=== PATIENT | female | born 1950 | race Caucasian/White ===

== ENCOUNTER 2017-06-05 08:27 | Inpatient (IN) | payer MEDICARE, BC ==
[2017-06-05] MEDS ORDERED: Ondansetron 4 MG/2 ML SDV IVPUSH ONE (09:49)
[2017-06-05] MEDS ORDERED: Ibuprofen 600 MG Tab PO ONE (09:49)
--- NOTE | 2017-06-05 09:55 | EDM.PDOC ---
ED HPI GENERAL MEDICAL PROBLEM - General Chief Complaint: Fever Stated Complaint: HEADACHE RUNNING TEMPERATURE Time Seen by Provider: 06/05/17 09:48 Source of Information: Reports: Patient History Limitations: Reports: No Limitations - History of Present Illness INITIAL COMMENTS - FREE TEXT/NARRATIVE: 67-year-old female presents to the ED for evaluation of high fever up to 102.3 at her home. She's been ill with fever and chills for the last 3 days. Of note the patient was on a cruise to [place] and became ill on June 01 while she was in [place]. She's had some diarrhea while on the cruise ship She reports a good deal of nasal secretion drainage which was yellowish in color. Subsequently has developed a productive cough but can't get any sputum up the last day or so. Does have a generalized headache. She has anorexia. Denies any dysuria ,urgency or frequency. No skin rashes. She doesn't believe that she came in contact with any ticks or mosquitoes while away. Of note the patient does not take a flu shot. Did express a lot of pain in her left ear and mitzi- face during the flight specially landing i.e. tubal occlusion on the left side. History she has a chronic sinusitis problem. Associated nausea without vomiting. Very little oral food intake in the last 3 days. Associated diaphoresis and rigors 2 days. Onset: Gradual Onset Date: 06/01/17 Duration: Day(s):, Getting Worse Location: Reports: Generalized Quality: Reports: Ache, Pressure (Generalized myalgia. 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 Became sick on the cruise ship.). Denies: Activity, Exercise, Lifting , Sick Contact, Trauma Associated Symptoms: Reports: Chest Pain, Cough, cough w sputum (Active sounding cough.), Diaphoresis ( Occasional yellow sputum), Fever/Chills, Headaches, Loss of Appetite, Malaise, Nausea/Vomiting (Nausea and did vomit once on Sunday, June 03.), Shortness of Breath. 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 Face Pain Score (Numeric/FACES): 7 Lower Back Pain Score (Numeric/FACES): 8 - Related Data Allergies Allergy/AdvReac Type Severity Reaction Status Date / Time codeine AdvReac Headache Verified 06/05/17 14:39 meperidine [From Demerol] AdvReac Nausea and Verified 06/05/17 14:39 Vomiting morphine AdvReac Depression Verified 06/05/17 14:39 IV contrast dye Allergy Rash Uncoded 06/05/17 09:00 P T U Allergy Rash Uncoded 06/05/17 09:00 Past Medical History HEENT History: Reports: Impaired Vision Other HEENT History: wears eyeglasses Cardiovascular History: Reports: Hypertension Gastrointestinal History: Reports: Other (See Below) Other Gastrointestinal History: part of liver removed. PRINCIPAL SECURITY ARCHITECT History: Reports: Endocrine/Metabolic History: Reports: Hypothyroidism Oncologic (Cancer) History: Reports: Liver - Infectious Disease History Infectious Disease History: Reports: Chicken Pox, Measles, Mumps, Shingles - Past Surgical History GI Surgical History: Reports: Cholecystectomy Musculoskeletal Surgical History: Reports: Other (See Below) Other Musculoskeletal Surgeries/Procedures:: TMJ surgery. Social & Family History - Tobacco Use Smoking Status *Q: Never Smoker Second Hand Smoke Exposure: No - Caffeine Use Caffeine Use: Reports: Coffee - Recreational Drug Use Recreational Drug Use: No - Living Situation & Occupation Living situation: Reports: Single Occupation: Retired ED ROS GENERAL - Review of Systems Review Of Systems: See Below Constitutional: Reports: Fever, Chills, Malaise, Weakness, Fatigue, Decreased Appetite HEENT: Reports: Ear Pain (Left side), Glasses, Hearing Loss (On the left side), Rhinitis, Sinus Problem, Vertigo (Does feel off balance. Has to walk with one person assist). Denies: Throat Pain, Throat Swelling Respiratory: Reports: Shortness of Breath, Cough, Sputum. Denies: Wheezing, Pleuritic Chest Pain, Hemoptysis (Occasional yellowish sputum) Cardiovascular: Reports: Dyspnea on Exertion, Lightheadedness. Denies: Chest Pain, Blood Pressure Problem, Claudication, Edema, Orthopnea, Palpitations Endocrine: Reports: Fatigue GI/Abdominal: Reports: Anorexia, Nausea, Vomiting (Vomited once 2 days ago.) Musculoskeletal: Reports: Neck Pain, Back Pain, Other (Generalized myalgia.) Skin: Reports: No Symptoms Neurological: Reports: Dizziness, Headache, Weakness. Denies: Confusion, Paresthesia, Pre-Existing Deficit, Syncope, Tremors, Trouble Speaking, Difficulty Walking Psychiatric: Reports: No Symptoms Hematologic/Lymphatic: Reports: No Symptoms Immunologic: Reports: No Symptoms ED EXAM, GENERAL - Physical Exam Exam: See Below Exam Limited By: No Limitations General Appearance: Alert, WD/WN, Moderate Distress, Other (Patient feels very warm to palpation like 102 or more. She is diaphoretic. O2 sats were only 88% on room air. She is 93% on 2 L.) Eye Exam: Bilateral Eye: Normal Inspection Ears: Other (Left serous otitis media. There is also an area of erythema in the posterior ear canal suggestive of a Q-tip injury.) Nose: Nasal Swelling, Nasal Drainage, Other Throat/Mouth: Normal Inspection, Normal Oropharynx, Other (Tongue is dry and coated.) Head: Atraumatic, Normocephalic Neck: Normal Inspection, Supple, Non-Tender, Full Range of Motion. No: Lymphadenopathy (L), Lymphadenopathy (R) Respiratory/Chest: Lungs Clear (Mild tachypnea.), Respiratory Distress, Other ( Harsh productive sounding cough.). No: Rales, Rhonchi, Wheezing Cardiovascular: Normal Peripheral Pulses, Regular Rate, Rhythm (Tachycardia at rest 10 6/m.), No Edema, No Gallop, No Murmur, No Rub, Tachycardia Peripheral Pulses: 2+: Posterior Tibial (L), Posterior Tibial (R), Dorsalis Pedis (L), Dorsalis Pedis (R) GI/Abdominal: Normal Bowel Sounds, Soft, Non-Tender, No Organomegaly, No Distention Back Exam: No: CVA Tenderness (L), CVA Tenderness (R) Extremities: Normal Inspection, Normal Range of Motion, Non-Tender, No Pedal Edema Neurological: Alert, Oriented, CN II-XII Intact, Normal Cognition, Normal Gait Psychiatric: Normal Affect, Normal Mood Skin Exam: Warm, Dry, Normal Color, No Rash, Diaphoretic EKG INTERPRETATION EKG Date: 06/05/17 Time: 10:15 Rhythm: NSR Rate (Beats/Min): 95 Garrard: Normal P-Wave: Present QRS: Other (Occasional PVCs) ST-T: Depressed (Mild ST segment depression in lead 1 before V5 and perhaps V6. This may represent a repolarization abnormality versus ischemia.) QT: Normal EKG Interpretation Comments: Borderline ECG Course - Vital Signs Last Recorded V/S: Last Vital Signs Temp 38.3 C H 06/05/17 10:25 Pulse 101 H 06/05/17 08:50 Resp 20 06/05/17 08:50 BP 120/74 06/05/17 08:50 Pulse Ox 91 L 06/05/17 08:50 - Orders/Labs/Meds Orders: Active Orders 24 hr Category Date Time Status EKG Documentation Completion [RC] STAT Care 06/05/17 09:50 Active Height and Weight [RC] DAILY Care 06/05/17 14:27 Active Intake and Output [RC] QSHIFT Care 06/05/17 14:27 Active Oxygen Therapy [RC] ASDIRECTED Care 06/05/17 09:51 Active Oxygen Therapy [RC] PRN Care 06/05/17 14:27 Active RT Aerosol Therapy [RC] ASDIRECTED Care 06/05/17 14:29 Active Up With Assistance [RC] ASDIRECTED Care 06/05/17 14:27 Active Up ad Sherrell [RC] ASDIRECTED Care 06/05/17 14:27 Active VTE/DVT Education [RC] PER UNIT ROUTINE Care 06/05/17 14:27 Active Vital Signs [RC] Q4H Care 06/05/17 14:27 Active Consult to Case Management [CONS] Routine Cons 06/05/17 14:31 Active Consult to Seed Specialist [CONS] Routine Cons 06/05/17 14:31 Active Consult to Spiritual Care [CONS] Routine Cons 06/05/17 14:31 Active OT Evaluation and Treatment [CONS] Routine Cons 06/05/17 14:31 Active PT Evaluation and Treatment [CONS] Routine Cons 06/05/17 14:31 Active Respiratory Care Assess and Treatment [CONS] Routine Cons 06/05/17 14:31 Active Nothing per Oral Now Diet [DIET] Diet 06/05/17 Lunch Active C-REACTIVE PROTEIN [CHEM] AM Lab 06/06/17 05:11 Ordered C-REACTIVE PROTEIN [CHEM] AM Lab 06/07/17 05:11 Ordered C-REACTIVE PROTEIN [CHEM] AM Lab 06/08/17 05:11 Ordered CBC WITH AUTO DIFF [HEME] AM Lab 06/06/17 05:11 Ordered CBC WITH AUTO DIFF [HEME] AM Lab 06/07/17 05:11 Ordered CBC WITH AUTO DIFF [HEME] AM Lab 06/08/17 05:11 Ordered CULTURE BLOOD [BC] Stat Lab 06/05/17 10:10 Received CULTURE BLOOD [BC] Stat Lab 06/05/17 10:20 Received MAGNESIUM [CHEM] AM Lab 06/06/17 05:11 Ordered MAGNESIUM [CHEM] AM Lab 06/07/17 05:11 Ordered MAGNESIUM [CHEM] AM Lab 06/08/17 05:11 Ordered NOROVIRUS GROUP 1 & 2 RT-PCR Stat Lab 06/05/17 14:00 Ordered SEDIMENTATION RATE AUTO [HEME] AM Lab 06/06/17 05:11 Ordered SEDIMENTATION RATE AUTO [HEME] AM Lab 06/07/17 05:11 Ordered SEDIMENTATION RATE AUTO [HEME] AM Lab 06/08/17 05:11 Ordered Acetaminophen [Tylenol] Med 06/05/17 14:27 Active 650 mg PO Q4H PRN Albuterol/Ipratropium [DuoNeb 3.0-0.5 MG/3 ML] Med 06/05/17 14:27 Active 3 ml NEB Q4H PRN Amoxicillin/Clavulanate K [Augmentin XR 1000 MG] Med 06/05/17 14:37 Once 1 tab PO ONETIME ONE Amoxicillin/Clavulanate K [Augmentin XR 1000 MG] Med 06/05/17 21:00 Ordered 1 tab PO Q12HR Dextrose 5%-0.9% NaCl [Dextrose 5%-Normal Saline] 1,000 Med 06/05/17 10:00 Active ml IV ASDIRECTED Enoxaparin [Lovenox] Med 06/06/17 09:00 Ordered 30 mg SUBCUT DAILY HYDROmorphone [Dilaudid] Med 06/05/17 14:27 Active 0.25 mg IVPUSH Q2H PRN Ketorolac [Toradol] Med 06/05/17 13:30 Active 30 mg IVPUSH ONETIME LORazepam [Ativan] Med 06/05/17 14:27 Active 0.5 mg IV Q6H PRN LORazepam [Ativan] Med 06/05/17 14:32 Active 2 mg IVPUSH Q4H PRN Magnesium Rep Pharmacy to Dose [Pharmacy to Dose - Med 06/05/17 14:45 Ordered Magnesium Replacement] 1 dose .XX ASDIRECTED Metoprolol Tartrate [Lopressor] Med 06/05/17 14:32 Active 5 mg IVPUSH Q4H PRN Ondansetron [Zofran] Med 06/05/17 14:27 Active 4 mg IV Q6H PRN Potassium Rep Pharmacy to Dose [Pharmacy to Dose - Med 06/05/17 14:45 Ordered Potassium Replacement] 1 dose .XX ASDIRECTED Promethazine [Phenergan] 12.5 mg Med 06/05/17 14:27 Active Sodium Chloride 0.9% [Normal Saline] 50 ml IV Q6H Saccharomyces Boulardii [Florastor] Med 06/05/17 21:00 Active 250 mg PO BID Saccharomyces Boulardii [Florastor] Med 06/06/17 14:38 Once 250 mg PO DAILY ONE Temazepam [Restoril] Med 06/05/17 14:27 Active 15 mg PO BEDTIME PRN hydrALAZINE [Apresoline] Med 06/05/17 14:32 Active 20 mg IVPUSH Q4H PRN oxyCODONE Med 06/05/17 14:27 Active 5 mg PO Q4H PRN Blood Culture x2 Reflex Set [OM.PC] Stat Oth 06/05/17 09:51 Ordered Isolation [COMM] Routine Oth 06/05/17 14:40 Ordered Resuscitation Status Routine Resus Stat 06/05/17 14:27 Ordered Medication Orders Acetaminophen (Tylenol) 650 mg PO Q4H PRN PRN Reason: Pain (Mild 1-3)/fever Albuterol/Ipratropium (Duoneb 3.0-0.5 Mg/3 Ml) 3 ml NEB Q4H PRN PRN Reason: Shortness Of Breath/wheezing Amoxicillin/Clavulanate Potassium (Augmentin Xr 1000 Mg) 1 tab PO Q12HR BOOGIE Amoxicillin/Clavulanate Potassium (Augmentin Xr 1000 Mg) 1 tab PO ONETIME ONE Stop: 06/05/17 14:38 Enoxaparin Sodium (Lovenox) 30 mg SUBCUT DAILY [facility]IE Hydralazine HCl (Apresoline) 20 mg IVPUSH Q4H PRN PRN Reason: Hypertension Hydromorphone HCl (Dilaudid) 0.25 mg IVPUSH Q2H PRN PRN Reason: Pain (severe 7-10) Dextrose/Sodium Chloride (Dextrose 5%-Normal Saline) 1,000 mls @ 500 mls/hr IV ASDIRECTED BOOGIE Last Admin: 06/05/17 10:23 Dose: 500 mls/hr Promethazine HCl 12.5 mg/ (Sodium Chloride) 50.5 mls @ 100 mls/hr IV Q6H PRN PRN Reason: Nausea/Vomiting Ketorolac Tromethamine (Toradol) 30 mg IVPUSH ONETIME [facility] Last Admin: 06/05/17 13:49 Dose: 30 mg Lorazepam (Ativan) 0.5 mg IV Q6H PRN PRN Reason: Anxiety Lorazepam (Ativan) 2 mg IVPUSH Q4H PRN PRN Reason: Seizures Magnesium Sulfate (Pharmacy To Dose - Magnesium Replacement) 1 dose .XX ASDIRECTED [facility] Metoprolol Tartrate (Lopressor) 5 mg IVPUSH Q4H PRN PRN Reason: Tachycardia Ondansetron HCl (Zofran) 4 mg IV Q6H PRN PRN Reason: Nausea/Vomiting Oxycodone HCl (Oxycodone) 5 mg PO Q4H PRN PRN Reason: Pain (moderate 4-6) Potassium Chloride (Pharmacy To Dose - Potassium Replacement) 1 dose .XX ASDIRECTED [facility] Saccharomyces Boulardii (Florastor) 250 mg PO BID [facility] Saccharomyces Boulardii (Florastor) 250 mg PO DAILY ONE Stop: 06/06/17 14:39 Temazepam (Restoril) 15 mg PO BEDTIME PRN PRN Reason: Sleep Labs: Laboratory Tests 06/05/17 06/05/17 06/05/17 Range/Units 10:10 10:10 12:30 WBC 6.20 (3.98-10.04) K/mm3 RBC 4.10 (3.98-5.22) M/mm3 Hgb 13.1 (11.2-15.7) gm/L Hct 39.0 (34.1-44.9) % MCV 95.1 H (79.4-94.8) fl MCH 32.0 (25.6-32.2) pg MCHC 33.6 (32.2-35.5) g/dl RDW Std Deviation 42.1 (36.4-46.3) fL Plt Count 173 L (182-369) K/mm3 MPV 10.2 (9.4-12.3) fl Neutrophils % (Manual) 79 H (40-60) % Band Neutrophils % 9 (0-10) % Lymphocytes % (Manual) 10 L (20-40) % Atypical Lymphs % 0 % Monocytes % (Manual) 2 (2-10) % Eosinophils % (Manual) 0 L (0.7-5.8) % Basophils % (Manual) 0 L (0.1-1.2) Platelet Estimate Adequate RBC Morph Comment Normal ESR (0-20) mm/hr Sodium 134 L (136-145) mEq/L Potassium 3.6 (3.5-5.1) mEq/L Chloride 99 (98-107) mEq/L Carbon Dioxide 26 (21-32) mEq/L Anion Gap 12.6 (5-15) BUN 11 (7-18) mg/dL Creatinine 0.8 (0.55-1.02) mg/dL Est Cr Clr Drug Dosing 54.71 mL/min Estimated GFR (MDRD) > 60 (>60) mL/min BUN/Creatinine Ratio 13.8 L (14-18) Glucose 137 H (80-115) mg/dL Calcium 9.0 (8.5-10.1) mg/dL Total Bilirubin 0.4 (0.2-1.0) mg/dL AST 57 H (15-37) U/L ALT 38 (14-59) U/L Alkaline Phosphatase 125 H (46-116) U/L C-Reactive Protein 6.4 H* (<1.0) mg/dL Total Protein 7.0 (6.4-8.2) g/dl Albumin 3.3 L (3.4-5.0) g/dl Globulin 3.7 gm/dL Albumin/Globulin Ratio 0.9 L (1-2) Urine Color Yellow (Yellow) Urine Appearance Clear (Clear) Urine pH 6.0 (5.0-8.0) Ur Specific [place] 1.020 (1.005-1.030) Urine Protein Trace H (Negative) Urine Glucose (UA) 1+ H (Negative) Urine Ketones 1+ H (Negative) Urine Occult Blood Negative (Negative) Urine Nitrite Negative (Negative) Urine Bilirubin Negative (Negative) Urine Urobilinogen 0.2 (0.2-1.0) Ur Leukocyte Esterase Negative (Negative) Urine RBC 0-5 (0-5) /hpf Urine WBC 0-5 (0-5) /hpf Ur Epithelial Cells 0-5 (0-5) /hpf Urine Bacteria Few (FEW) /hpf Urine Mucus Few (FEW) /hpf 06/05/17 Range/Units 14:49 WBC (3.98-10.04) K/mm3 RBC (3.98-5.22) M/mm3 Hgb (11.2-15.7) gm/L Hct (34.1-44.9) % MCV (79.4-94.8) fl MCH (25.6-32.2) pg MCHC (32.2-35.5) g/dl RDW Std Deviation (36.4-46.3) fL Plt Count (182-369) K/mm3 MPV (9.4-12.3) fl Neutrophils % (Manual) (40-60) % Band Neutrophils % (0-10) % Lymphocytes % (Manual) (20-40) % Atypical Lymphs % % Monocytes % (Manual) (2-10) % Eosinophils % (Manual) (0.7-5.8) % Basophils % (Manual) (0.1-1.2) Platelet Estimate RBC Morph Comment ESR 21 H (0-20) mm/hr Sodium (136-145) mEq/L Potassium (3.5-5.1) mEq/L Chloride (98-107) mEq/L Carbon Dioxide (21-32) mEq/L Anion Gap (5-15) BUN (7-18) mg/dL Creatinine (0.55-1.02) mg/dL Est Cr Clr Drug Dosing mL/min Estimated GFR (MDRD) (>60) mL/min BUN/Creatinine Ratio (14-18) Glucose (80-115) mg/dL Calcium (8.5-10.1) mg/dL Total Bilirubin (0.2-1.0) mg/dL AST (15-37) U/L ALT (14-59) U/L Alkaline Phosphatase (46-116) U/L C-Reactive Protein (<1.0) mg/dL Total Protein (6.4-8.2) g/dl Albumin (3.4-5.0) g/dl Globulin gm/dL Albumin/Globulin Ratio (1-2) Urine Color (Yellow) Urine Appearance (Clear) Urine pH (5.0-8.0) Ur Specific [place] (1.005-1.030) Urine Protein (Negative) Urine Glucose (UA) (Negative) Urine Ketones (Negative) Urine Occult Blood (Negative) Urine Nitrite (Negative) Urine Bilirubin (Negative) Urine Urobilinogen (0.2-1.0) Ur Leukocyte Esterase (Negative) Urine RBC (0-5) /hpf Urine WBC (0-5) /hpf Ur Epithelial Cells (0-5) /hpf Urine Bacteria (FEW) /hpf Urine Mucus (FEW) /hpf Meds: Medications Generic Name Dose Route Start Last Admin Trade Name Freq PRN Reason Stop Dose Admin Acetaminophen 650 mg 06/05/17 14:27 Tylenol PO Q4H PRN Pain (Mild 1-3)/fever Albuterol/Ipratropium 3 ml 06/05/17 14:27 Duoneb 3.0-0.5 Mg/3 Ml NEB Q4H PRN Shortness Of Breath/wheezing Amoxicillin/Clavulanate Potassium 1 tab 06/05/17 21:00 Augmentin Xr 1000 Mg PO Q12HR BOOGIE Amoxicillin/Clavulanate Potassium 1 tab 06/05/17 14:37 Augmentin Xr 1000 Mg PO 06/05/17 14:38 ONETIME ONE Enoxaparin Sodium 30 mg 06/06/17 09:00 Lovenox SUBCUT DAILY BOOGIE Hydralazine HCl 20 mg 06/05/17 14:32 Apresoline IVPUSH Q4H PRN Hypertension Hydromorphone HCl 0.25 mg 06/05/17 14:27 Dilaudid IVPUSH Q2H PRN Pain (severe 7-10) Dextrose/Sodium Chloride 1,000 mls @ 500 mls/hr 06/05/17 10:00 06/05/17 10:23 Dextrose 5%-Normal Saline IV 500 mls/hr ASDIRECTED BOOGIE Administration Promethazine HCl 12.5 mg/ 50.5 mls @ 100 mls/hr 06/05/17 14:27 Sodium Chloride IV Q6H PRN Nausea/Vomiting Ketorolac Tromethamine 30 mg 06/05/17 13:30 06/05/17 13:49 Toradol IVPUSH 30 mg ONETIME BOOGIE Administration Lorazepam 0.5 mg 06/05/17 14:27 Ativan IV Q6H PRN Anxiety Lorazepam 2 mg 06/05/17 14:32 Ativan IVPUSH Q4H PRN Seizures Magnesium Sulfate 1 dose 06/05/17 14:45 Pharmacy To Dose - Magnesium Replacement .XX ASDIRECTED [facility] Metoprolol Tartrate 5 mg 06/05/17 14:32 Lopressor IVPUSH Q4H PRN Tachycardia Ondansetron HCl 4 mg 06/05/17 14:27 Zofran IV Q6H PRN Nausea/Vomiting Oxycodone HCl 5 mg 06/05/17 14:27 Oxycodone PO Q4H PRN Pain (moderate 4-6) Potassium Chloride 1 dose 06/05/17 14:45 Pharmacy To Dose - Potassium Replacement .XX ASDIRECTED [facility] Saccharomyces Boulardii 250 mg 06/05/17 21:00 Florastor PO BID BOOGIE Saccharomyces Boulardii 250 mg 06/06/17 14:38 Florastor PO 06/06/17 14:39 DAILY ONE Temazepam 15 mg 06/05/17 14:27 Restoril PO BEDTIME PRN Sleep Discontinued Medications Generic Name Dose Route Start Last Admin Trade Name Freq PRN Reason Stop Dose Admin Levofloxacin/Dextrose 750 mg/ 150 mls @ 100 mls/hr 06/05/17 10:54 06/05/17 11 :20 Premix IV 06/05/17 12:23 100 mls/hr ONETIME ONE Administration Ibuprofen 600 mg 06/05/17 09:49 06/05/17 10:25 Motrin PO 06/05/17 09:50 600 mg ONETIME ONE Administration Ondansetron HCl 4 mg 06/05/17 09:49 06/05/17 10:25 Zofran IVPUSH 06/05/17 09:50 4 mg ONETIME ONE Administration Oseltamivir Phosphate 75 mg 06/05/17 12:14 06/05/17 13:14 Tamiflu PO 06/05/17 12:15 75 mg ONETIME ONE Administration - Radiology Interpretation Free Text/Narrative:: 67-year-old female attends the ED due to four-day to five-day history of illness with fever chills productive cough, anorexia ,headache. She is hypoxic on room air at 88%. 93% on 2 L. She has had fever and chills and marked anorexia. Suspect underlying pneumonia. Plan IV D5 normal saline at 500 mils per hour. Given Motrin 600 mg by mouth for fever relief. Septic workup to be carried out including including blood cultures 2. I will also order an influenza screen since [place] cruise [place] recently does not take a flu shot. CT of the maxillofacial sinuses to be carried out due to marked evidence of sinusitis. Lactic acid ordered as well. - Re-Assessments/Exams Free Text/Narrative Re-Assessment/Exam: 06/05/17 10:51 two-view chest x-ray is completely normal with no signs of pneumonia. CT of the maxillofacial sinuses reveals pansinusitis particularly involving the ethmoids and sphenoids. Would air cells appear to be normal. No obvious middle ear infection was identified on CT. I will therefore place her on Levaquin 750 mg IV at this time for the sinus infection. It's unlikely that the sinus infection alone as the cause of such a high fever however. Observe pending. 06/05/17 10:55 06/05/17 12:11 white count was 6.20 with a left shift of 79% it fills in 9% band cells. Hemoglobin is 13.1 hematocrit is 39.0 platelets 173,000. Sodium was slightly low at 134 potassium low-normal at 3.6. The remainder the chemistry was normal CRP is elevated at 6.4. Influenza screen came back positive for the HIV virus. I will give her initial dose of Tamiflu orally in the ED although she has been ill for greater [place] 48 hours and it's up in the air as to whether she will get much benefit from the antiviral medication. She will require admission to the hospital mostly because of her hypoxia. She also has pansinusitis contributing to her current illness. Will speak to hospitalist in this regard. 06/05/17 12:50 Departure - Departure Time of Disposition: 15:59 Disposition: Home, Self-Care 01 Condition: Fair Clinical Impression: Influenza A, Recurrent pansinusitis, Hypoxia, Influenza - Discharge Information - My Orders Last 24 Hours: My Active Orders 06/05/17 09:50 EKG Documentation Completion [RC] STAT 06/05/17 09:51 Oxygen Therapy [RC] ASDIRECTED Blood Culture x2 Reflex Set [OM.PC] Stat 06/05/17 10:00 Dextrose 5%-0.9% NaCl [Dextrose 5%-Normal Saline] 1,000 ml IV ASDIRECTED 06/05/17 10:10 CULTURE BLOOD [BC] Stat 06/05/17 10:20 CULTURE BLOOD [BC] Stat 06/05/17 13:30 Ketorolac [Toradol] 30 mg IVPUSH ONETIME - Assessment/Plan Last 24 Hours: My Active Orders 06/05/17 09:50 EKG Documentation Completion [RC] STAT 06/05/17 09:51 Oxygen Therapy [RC] ASDIRECTED Blood Culture x2 Reflex Set [OM.PC] Stat 06/05/17 10:00 Dextrose 5%-0.9% NaCl [Dextrose 5%-Normal Saline] 1,000 ml IV ASDIRECTED 06/05/17 10:10 CULTURE BLOOD [BC] Stat 06/05/17 10:20 CULTURE BLOOD [BC] Stat 06/05/17 13:30 Ketorolac [Toradol] 30 mg IVPUSH ONETIME
[2017-06-05] MEDS ORDERED: Dextrose 5%-0.9% NaCl 1,000 ML IV SCH (10:00)
--- NOTE | 2017-06-05 10:49 | CT ---
CT paranasal sinuses Technique: Multiple axial sections through the paranasal sinuses were obtained. Comparison: Previous CT study of the sinuses dated 12/06/16. Findings: Air-fluid levels are noted within both maxillary sinuses. Mild mucosal thickening is seen within both maxillary sinuses. Fairly severe mucosal thickening is seen within the ethmoid sinuses. Minimal mucosal thickening within the sphenoid sinuses is noted. Air-fluid levels are seen within the frontal sinuses. No acute bony abnormality is appreciated. Impression: 1. Air-fluid levels within both maxillary and frontal sinuses. Air-fluid levels are seen within the maxillary sinuses on prior CT exam. Current findings most likely due to recurrent acute sinusitis. 2. Fairly severe mucosal thickening is noted within the ethmoid sinuses. Diagnostic code #3
[2017-06-05] MEDS ORDERED: Levofloxacin/Dextrose 5%-Water 750 MG in Premix Bag 1 BAG IV ONE (10:54)
[2017-06-05] MEDS ORDERED: Oseltamivir 75 MG Cap PO ONE (12:14)
--- NOTE | 2017-06-05 12:30 | CR ---
Chest: Two views of the chest were obtained. Comparison: Previous chest x-ray of 09/04/12. Heart size and mediastinum are normal. Lungs are clear. Bony structures are within normal limits for the patient's age. Impression: 1. Nothing acute is appreciated on two-view chest x-ray. Diagnostic code #1
[2017-06-05] MEDS ORDERED: Ketorolac 30 MG/ML SDV IVPUSH SCH (13:30)
--- NOTE | 2017-06-05 14:00 | PCM.HP ---
H&P History of Present Illness - General Date of Service: 06/05/17 Admit Problem/Dx: Acute Viral Illness and Acute Bacterial Rhinosinusitis Source of Information: Patient, Provider, RN Notes Reviewed, Significant Other History Limitations: Reports: No Limitations - History of Present Illness Initial Comments - Free Text/Narative: This is a 67-year-old white female with past medical history of impaired vision , hypertension, hypothyroidism, history of liver cancer status post resection, who presents to the emergency department with complains of fever with chills that has been going on for the past 3 days. She reports a subjective fever as high as 102.3 at home. Her chief complaints are associated with facial tenderness with nasal drainage that is yellowish in color, left ear pain, productive cough with sputum, generalized aches and pains, headache, nausea, watery diarrhea and anorexia. She denies any skin rash, or joint pain. Patient has taken a cruise to [place] but got sick on June 01 while she was in [place]. Patient has had seafood, plenty of seafood but denies drinking or eating local foods. She denies any seafood intolerance or allergies in the past. Her initial workup in emergency department shows a CBC remarkable of platelet of 173. Her chemistry is remarkable for sodium of 134, glucose of 137, AST of 57 , alkaline phosphatase of 125, CRP of 6.4, and albumin of 3.3. Her UA is negative for UTI. CT scan maxillofacial sinuses without contrast report reads air fluid levels within both maxillary and frontal sinuses. Current findings most likely due to recurrent acute sinusitis. Fairly severe mucosal thickening is noted within the ethmoid sinuses. Chest x-ray report reads nothing acute is appreciated. Patient is being admitted for acute viral illness and acute on chronic bacterial rhinosinusitis. She is full code. Face Pain Score (Numeric/FACES): 7 Lower Back Pain Score (Numeric/FACES): 8 - Related Data Allergies/Adverse Reactions: Allergies Allergy/AdvReac Type Severity Reaction Status Date / Time codeine AdvReac Headache Verified 06/05/17 14:39 meperidine [From Demerol] AdvReac Nausea and Verified 06/05/17 14:39 Vomiting morphine AdvReac Depression Verified 06/05/17 14:39 IV contrast dye Allergy Rash Uncoded 06/05/17 09:00 P T U Allergy Rash Uncoded 06/05/17 09:00 Past Medical History HEENT History: Reports: Impaired Vision Other HEENT History: wears eyeglasses Cardiovascular History: Reports: Hypertension Gastrointestinal History: Reports: Other (See Below) Other Gastrointestinal History: part of liver removed. 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 Social & Family History - Tobacco Use Smoking Status *Q: Never Smoker Second Hand Smoke Exposure: No - Caffeine Use Caffeine Use: Reports: Coffee - Recreational Drug Use Recreational Drug Use: No - Living Situation & Occupation Living situation: Reports: Single Occupation: Retired H&P Review of Systems - Review of Systems: Review Of Systems: See Below General: Reports: Fever, Chills, Malaise, Weakness, Fatigue, Decreased Appetite HEENT: Reports: Ear Pain, Rhinitis, Sinus Congestion, Vertigo Pulmonary: Reports: Shortness of Breath Cardiovascular: Reports: Dyspnea on Exertion, Lightheadedness. Denies: Chest Pain Gastrointestinal: Reports: Anorexia, Diarrhea, Nausea, Vomiting. Denies: Abdominal Pain Musculoskeletal: Reports: Neck Pain, Back Pain, Muscle Pain Skin: Denies: Cyanosis, Jaundice, Pruritis, Rash, Erythema, Lesions Psychiatric: Denies: Confusion, Depression, Anxiety, Hallucinations, Suicidal Ideation, Homicidal Ideation Neurological: Reports: Dizziness, Headache, Weakness. Denies: Difficulty Walking, Gait Disturbance Hematologic/Lymphatic: Reports: No Symptoms Immunologic: Reports: No Symptoms Exam - Exam Exam: See Below - Vital Signs Vital Signs: Last Vital Signs Temp 38.3 C H 06/05/17 10:25 Pulse 101 H 06/05/17 08:50 Resp 20 06/05/17 08:50 BP 120/74 06/05/17 08:50 Pulse Ox 91 L 06/05/17 08:50 Weight: 78.018 kg - Exam General: Alert, Oriented, Cooperative, Mild Distress HEENT: Conjunctiva Clear, EACs Clear, EOMI, Hearing Intact, Normal Nasal Septum , Posterior Pharynx Clear, Pupils Equal, Pupils Reactive, Rhinitis, Other ( Tender sinuses on palpation). No: Mucosa Moist & [place], Nares Patent Neck: Supple, Trachea Midline, +2 Carotid Pulse wo Bruit, Full Range of Motion. No: JVD Lungs: Clear to Auscultation, Normal Respiratory Effort Cardiovascular: Regular Rhythm, Tachycardia GI/Abdominal Exam: Normal Bowel Sounds, Soft, Non-Tender, No Organomegaly, No Distention, No Abnormal Bruit, No Mass (Female) Exam: Deferred Rectal (Female) Exam: Deferred Back Exam: Normal Inspection, Decreased Range of Motion Extremities: Normal Inspection, Normal Range of Motion, Non-Tender, No Pedal Edema, Normal Capillary Refill Peripheral Pulses: 2+: Posterior Tibial (L), Posterior Tibial (R), Dorsalis Pedis (L), Dorsalis Pedis (R) Skin: Warm, Dry, Intact Neuro Extensive - Mental Status: Oriented x3, Normal Cognition, Memory Intact Neuro Extensive - Motor, Sensory, Reflexes: CN II-XII Intact, Normal Gait Psychiatric: Alert, Normal Affect - Patient Data Lab Results Last 24 hrs: Laboratory Results - last 24 hr 06/05/17 06/05/17 06/05/17 Range/Units 10:10 10:10 12:30 WBC 6.20 (3.98-10.04) K/mm3 RBC 4.10 (3.98-5.22) M/mm3 Hgb 13.1 (11.2-15.7) gm/L Hct 39.0 (34.1-44.9) % MCV 95.1 H (79.4-94.8) fl MCH 32.0 (25.6-32.2) pg MCHC 33.6 (32.2-35.5) g/dl RDW Std Deviation 42.1 (36.4-46.3) fL Plt Count 173 L (182-369) K/mm3 MPV 10.2 (9.4-12.3) fl Neutrophils % (Manual) 79 H (40-60) % Band Neutrophils % 9 (0-10) % Lymphocytes % (Manual) 10 L (20-40) % Atypical Lymphs % 0 % Monocytes % (Manual) 2 (2-10) % Eosinophils % (Manual) 0 L (0.7-5.8) % Basophils % (Manual) 0 L (0.1-1.2) Platelet Estimate Adequate RBC Morph Comment Normal Sodium 134 L (136-145) mEq/L Potassium 3.6 (3.5-5.1) mEq/L Chloride 99 (98-107) mEq/L Carbon Dioxide 26 (21-32) mEq/L Anion Gap 12.6 (5-15) BUN 11 (7-18) mg/dL Creatinine 0.8 (0.55-1.02) mg/dL Est Cr Clr Drug Dosing 54.71 mL/min Estimated GFR (MDRD) > 60 (>60) mL/min BUN/Creatinine Ratio 13.8 L (14-18) Glucose 137 H (80-115) mg/dL Calcium 9.0 (8.5-10.1) mg/dL Total Bilirubin 0.4 (0.2-1.0) mg/dL AST 57 H (15-37) U/L ALT 38 (14-59) U/L Alkaline Phosphatase 125 H (46-116) U/L C-Reactive Protein 6.4 H* (<1.0) mg/dL Total Protein 7.0 (6.4-8.2) g/dl Albumin 3.3 L (3.4-5.0) g/dl Globulin 3.7 gm/dL Albumin/Globulin Ratio 0.9 L (1-2) Urine Color Yellow (Yellow) Urine Appearance Clear (Clear) Urine pH 6.0 (5.0-8.0) Ur Specific [place] 1.020 (1.005-1.030) Urine Protein Trace H (Negative) Urine Glucose (UA) 1+ H (Negative) Urine Ketones 1+ H (Negative) Urine Occult Blood Negative (Negative) Urine Nitrite Negative (Negative) Urine Bilirubin Negative (Negative) Urine Urobilinogen 0.2 (0.2-1.0) Ur Leukocyte Esterase Negative (Negative) Urine RBC 0-5 (0-5) /hpf Urine WBC 0-5 (0-5) /hpf Ur Epithelial Cells 0-5 (0-5) /hpf Urine Bacteria Few (FEW) /hpf Urine Mucus Few (FEW) /hpf Result Diagrams: 06/05/17 10:10 06/05/17 10:10 Paulo Results Last 24 hrs: Microbiology 06/05/17 11:05 Influenza Type A Antigen Screen - Final Nasal, Right Positive Influenza A Ag Influenza Type B Antigen Screen - Final NEGATIVE INFLUENZA B VIRUS AG EKG INTERPRETATION EKG Date: 06/05/17 Time: 10:15 Rhythm: NSR Rate (Beats/Min): 95 [place]: Normal P-Wave: Present EKG Interpretation Comments: PVCS *Q Meaningful Use (ADM) - VTE *Q VTE Criteria *Q: - Stroke *Q Stroke Criteria *Q: - AMI *Q AMI Criteria *Q: Problem List Initiated/Reviewed/Updated: Yes Orders Last 24hrs: Active Orders 24 hr Category Date Time Status EKG Documentation Completion [RC] STAT Care 06/05/17 09:50 Active Oxygen Therapy [RC] ASDIRECTED Care 06/05/17 09:51 Active CULTURE BLOOD [BC] Stat Lab 06/05/17 10:10 Received CULTURE BLOOD [BC] Stat Lab 06/05/17 10:20 Received Dextrose 5%-0.9% NaCl [Dextrose 5%-Normal Saline] 1,000 Med 06/05/17 10:00 Active ml IV ASDIRECTED Ketorolac [Toradol] Med 06/05/17 13:30 Active 30 mg IVPUSH ONETIME Blood Culture x2 Reflex Set [OM.PC] Stat Oth 06/05/17 09:51 Ordered Medication Orders Dextrose/Sodium Chloride (Dextrose 5%-Normal Saline) 1,000 mls @ 500 mls/hr IV ASDIRECTED [facility]OO[facility]IE Last Admin: 06/05/17 10:23 Dose: 500 mls/hr Ketorolac Tromethamine (Toradol) 30 mg IVPUSH ONETIME [facility] Last Admin: 06/05/17 13:49 Dose: 30 mg Assessment/Plan Comment:: Assessment/Plan: Acute: Acute Bacterial Rhinosinusitis - Carries hx/o chronci sinusitis - Has has issues with her nasal septum in the past - Sinus tenderness on palpation - Discolored nasal drainage-yellowish - Received IV Levaquin in ED - Nasal Decongestant - Will start Augmentin po BID Viral Illness - Pos Influenza A + - She is now outside the window for treatment - Supportive care Watery Diarrhea - Recent [place] Cruise Trip - R/o Noro Virus - Had no issues with seafood in the past - Did not eat any local food - Supportive Care and Monitor e-lytes Generalized Body Aches/Myalgia - 2/2 Above - Supportive care Chronic: Impaired Vision HTN Hypothyroidism Hx/o Liver CA S/p Partial Resection Plan: Admit to Med-Surg Isolation Protocol Routine AM Labs NPO for now IV Fluids Resume Home Meds PT/OT consult SW/CM for d/c planning Code status: 1
[2017-06-05] MEDS ORDERED: Albuterol/Ipratropium 3.0-0.5 MG/3 ML Neb Soln NEB PRN (14:27)
[2017-06-05] MEDS ORDERED: Promethazine 12.5 MG in Sodium Chloride 0.9% 50 ML IV PRN (14:27)
[2017-06-05] MEDS ORDERED: LORazepam 2 MG/ML MDV IV PRN (14:27)
[2017-06-05] MEDS ORDERED: Acetaminophen 325 MG Tab PO PRN (14:27)
[2017-06-05] MEDS ORDERED: oxyCODONE 5 MG Tab PO PRN (14:27)
[2017-06-05] MEDS ORDERED: HYDROmorphone 1 MG/ML Syringe IVPUSH PRN (14:27)
[2017-06-05] MEDS ORDERED: Ondansetron 4 MG/2 ML SDV IV PRN (14:27)
[2017-06-05] MEDS ORDERED: hydrALAZINE 20 MG/ML SDV IVPUSH PRN (14:32)
[2017-06-05] MEDS ORDERED: LORazepam 2 MG/ML MDV IVPUSH PRN (14:32)
[2017-06-05] MEDS ORDERED: Metoprolol Tartrate 5 MG/5 ML SDV IVPUSH PRN (14:32)
[2017-06-05] MEDS ORDERED: AMOXICILLIN PO ONE (14:37)
[2017-06-05] MEDS ORDERED: CLAVULANATE K PO ONE (14:37)
[2017-06-05] MEDS ORDERED: AMOXICILLIN PO SCH (21:00)
[2017-06-05] MEDS ORDERED: CLAVULANATE K PO SCH (21:00)
[2017-06-05] MEDS: Amoxicillin/Clavulanate K 875-125 MG Tab PO SCH (21:40)
[2017-06-05] MEDS: Dextrose 5%-0.9% NaCl 1,000 ML IV SCH (21:40)
[2017-06-05] MEDS: Temazepam 15 MG Cap PO PRN (21:41)
[2017-06-05] MEDS: Saccharomyces Boulardii (Probiotic) 250 MG Cap PO SCH (21:41)
[2017-06-06] MEDS: Ibuprofen 600 MG Tab PO PRN ×2 (05:51→14:24)
[2017-06-06] MEDS ORDERED: Albuterol 6.7 GM Inhaler INH PRN (06:37)
[2017-06-06] MEDS ORDERED: guaiFENesin 600 MG Tab.ER PO PRN (06:37)
--- NOTE | 2017-06-06 06:37 | PCM.PN ---
- General Info Date of Service: 06/06/17 Admission Dx/Problem (Free Text): Acute Viral Illness and Acute Bacterial Rhinosinusitis Subjective Update: Follow Up Functional Status: Reports: Pain Controlled, Tolerating Diet, Urinating, New Symptoms - Review of Systems General: Reports: Fatigue, Malaise. Denies: Fever, Weakness, Chills HEENT: Reports: No Symptoms, Ear Pain, Sinus Congestion, Rhinitis Pulmonary: Denies: Shortness of Breath Cardiovascular: Denies: Chest Pain Gastrointestinal: Denies: Abdominal Pain, Decreased Appetite, Diarrhea, Nausea, Vomiting Genitourinary: Reports: No Symptoms Musculoskeletal: Reports: No Symptoms Skin: Denies: Cyanosis, Jaundice, Mottled, Pallor, Diaphoresis, Bruising, Pruritis, Rash Neurological: Denies: Confusion, Headache, Difficulty Walking, Weakness, Gait Disturbance Psychiatric: Denies: Depression, Anxiety, Agitation, Hallucinations Systems Review Comment:: No significant overnight or acute issues. She states "I feel much better". She had a shower and has just completed her PT session. She has no new complaints. - Patient Data Vitals - Most Recent: Last Vital Signs Temp 37.1 C 06/06/17 05:00 Pulse 91 06/06/17 05:00 Resp 16 06/06/17 05:00 BP 119/59 L 06/06/17 05:00 Pulse Ox 95 06/06/17 05:00 Weight - Most Recent: 77.836 kg I&O - Last 24 Hours: Intake & Output 06/05/17 06/05/17 06/06/17 14:59 22:59 06:59 Intake Total 1200 Output Total 500 Balance 700 Lab Results Last 24 Hours: Laboratory Results - last 24 hr 06/06/17 Range/Units 05:39 WBC 4.20 (3.98-10.04) K/mm3 RBC 3.77 L (3.98-5.22) M/mm3 Hgb 12.0 (11.2-15.7) gm/L Hct 36.0 (34.1-44.9) % MCV 95.5 H (79.4-94.8) fl MCH 31.8 (25.6-32.2) pg MCHC 33.3 (32.2-35.5) g/dl RDW Std Deviation 42.2 (36.4-46.3) fL Plt Count 146 L (182-369) K/mm3 MPV 9.7 (9.4-12.3) fl Neut % (Auto) 58.9 (34.0-71.1) % Lymph % (Auto) 32.4 (19.3-51.7) % [place] % (Auto) 8.3 (4.7-12.5) % Eos % (Auto) 0.2 L (0.7-5.8) Baso % (Auto) 0.2 (0.1-1.2) % Neut # (Auto) 2.47 (1.56-6.13) K/mm3 Lymph # (Auto) 1.36 (1.18-3.74) K/mm3 [place] # (Auto) 0.35 (0.24-0.36) K/mm3 Eos # (Auto) 0.01 L (0.04-0.36) K/mm3 Baso # (Auto) 0.01 (0.01-0.08) K/mm3 Med Orders - Current: Current Medications Albuterol/Ipratropium (Duoneb 3.0-0.5 Mg/3 Ml) 3 ml NEB Q4H PRN PRN Reason: Shortness Of Breath/wheezing Amoxicillin/Clavulanate Potassium (Augmentin 875 Mg/125 Mg) 1 tab PO BID [facility] Last Admin: 06/05/17 21:40 Dose: 1 tab Enoxaparin Sodium (Lovenox) 40 mg SUBCUT DAILY [facility] Hydralazine HCl (Apresoline) 20 mg IVPUSH Q4H PRN PRN Reason: Hypertension Hydromorphone HCl (Dilaudid) 0.25 mg IVPUSH Q2H PRN PRN Reason: Pain (severe 7-10) Promethazine HCl 12.5 mg/ (Sodium Chloride) 50.5 mls @ 100 mls/hr IV Q6H PRN PRN Reason: Nausea/Vomiting Dextrose/Sodium Chloride (Dextrose 5%-Normal Saline) 1,000 mls @ 100 mls/hr IV ASDIRECTED [facility] Last Admin: 06/05/17 21:40 Dose: 100 mls/hr Ibuprofen (Motrin) 600 mg PO Q6H PRN PRN Reason: Pain (moderate 4-6) Last Admin: 06/06/17 05:51 Dose: 600 mg Lorazepam (Ativan) 0.5 mg IV Q6H PRN PRN Reason: Anxiety Lorazepam (Ativan) 2 mg IVPUSH Q4H PRN PRN Reason: Seizures Magnesium Sulfate (Pharmacy To Dose - Magnesium Replacement) 1 dose .XX ASDIRECTED [facility] Metoprolol Tartrate (Lopressor) 5 mg IVPUSH Q4H PRN PRN Reason: Tachycardia Ondansetron HCl (Zofran) 4 mg IV Q6H PRN PRN Reason: Nausea/Vomiting Oxycodone HCl (Oxycodone) 5 mg PO Q4H PRN PRN Reason: Pain (moderate 4-6) Oxymetazoline HCl (Afrin Original 0.05% Nasal [place]) 15 ml DAMIAN DAILY [facility] Potassium Chloride (Pharmacy To Dose - Potassium Replacement) 1 dose .XX ASDIRECTED [facility] Saccharomyces Boulardii (Florastor) 250 mg PO BID [facility] Last Admin: 06/05/17 21:41 Dose: 250 mg Temazepam (Restoril) 15 mg PO BEDTIME PRN PRN Reason: Sleep Last Admin: 06/05/17 21:41 Dose: 15 mg Discontinued Medications Acetaminophen (Tylenol) 650 mg PO Q4H PRN PRN Reason: Pain (Mild 1-3)/fever Amoxicillin/Clavulanate Potassium (Augmentin Xr 1000 Mg) 1 tab PO Q12HR [facility] Amoxicillin/Clavulanate Potassium (Augmentin Xr 1000 Mg) 1 tab PO ONETIME ONE Stop: 06/05/17 14:38 Last Admin: 06/05/17 20:47 Dose: Not Given Dextrose/Sodium Chloride (Dextrose 5%-Normal Saline) 1,000 mls @ 500 mls/hr IV ASDIRECTED [facility] Last Admin: 06/05/17 10:23 Dose: 500 mls/hr Levofloxacin/Dextrose 750 mg/ (Premix) 150 mls @ 100 mls/hr IV ONETIME ONE Stop: 06/05/17 12:23 Last Admin: 06/05/17 11:20 Dose: 100 mls/hr Ibuprofen (Motrin) 600 mg PO ONETIME ONE Stop: 06/05/17 09:50 Last Admin: 06/05/17 10:25 Dose: 600 mg Ketorolac Tromethamine (Toradol) 30 mg IVPUSH ONETIME [facility] Last Admin: 06/05/17 13:49 Dose: 30 mg Ondansetron HCl (Zofran) 4 mg IVPUSH ONETIME ONE Stop: 06/05/17 09:50 Last Admin: 06/05/17 10:25 Dose: 4 mg Oseltamivir Phosphate (Tamiflu) 75 mg PO ONETIME ONE Stop: 06/05/17 12:15 Last Admin: 06/05/17 13:14 Dose: 75 mg Saccharomyces Boulardii (Florastor) 250 mg PO DAILY ONE Stop: 06/06/17 14:39 - Exam General: Alert, Oriented, Cooperative, No Acute Distress HEENT: Pupils Equal, Pupils Reactive, EOMI, Mucous Membr. Moist/[place] Neck: Supple, Trachea Midline, No JVD, No Thyromegaly Lungs: Clear to Auscultation, Normal Respiratory Effort Cardiovascular: Regular Rate, Regular Rhythm GI/Abdominal Exam: Normal Bowel Sounds, Soft, Non-Tender, No Organomegaly, No Distention, No Abnormal Bruit, No Mass (Female) Exam: Deferred Back Exam: Normal Inspection, Decreased Range of Motion Extremities: Normal Inspection, Normal Range of Motion, Non-Tender, No Pedal Edema, Normal Capillary Refill Peripheral Pulses: 2+: Dorsalis Pedis (L), Dorsalis Pedis (R) Skin: Warm, Dry, Intact Neurological: No New Focal Deficit Psy/Mental Status: Alert, Normal Affect, Normal Mood - Problem List Review Problem List Initiated/Reviewed/Updated: Yes - My Orders Last 24 Hours: My Active Orders 06/05/17 21:00 Amoxicillin/Clavulanate K [Augmentin 875 MG/125 MG] 1 tab PO BID 06/05/17 21:15 Dextrose 5%-0.9% NaCl [Dextrose 5%-Normal Saline] 1,000 ml IV ASDIRECTED 06/06/17 05:24 Ibuprofen [Motrin] 600 mg PO Q6H PRN 06/06/17 09:00 Enoxaparin [Lovenox] 40 mg SUBCUT DAILY Oxymetazoline [Afrin Original 0.05% Nasal [place]] 15 ml DAMIAN DAILY - Plan Plan:: Assessment/Plan: Acute: Acute Bacterial Rhinosinusitis, Improved - Carries hx/o chronci sinusitis - Has has issues with her nasal septum in the past - Sinus tenderness on palpation - Discolored nasal drainage-yellowish - Received IV Levaquin in ED - Nasal Decongestant - Continue Augmentin po BID - She breaths better Viral Illness - Pos Influenza A + - CRP is 10.2 (6.4) - She is now outside the window for treatment - Supportive care Generalized Body Aches/Myalgia - 2/2 Above - Supportive care Hypomagnesemia - Mg is 1.6 - 2/2 inadequate intake - Pharmacy to replete and monitor Resolved: S/p Watery Diarrhea - Recent [place] Cruise Trip - R/o [place] Virus - Had no issues with seafood in the past - Did not eat any local food - Supportive Care and Monitor e-lytes Chronic: Impaired Vision HTN Hypothyroidism Hx/o Liver CA S/p Partial Resection Plan: She looks much better clinically Continue Isolation Protocol Routine AM Labs Start clear liquid diet Complete remaining IV Fluids then d/c Continue PT/OT SW/CM for d/c planning Code status: 1 Possible d/c in AM
[2017-06-06] MEDS ORDERED: HYDROmorphone 0.5 MG/0.5 ML Syringe IVPUSH PRN (07:17)
[2017-06-06] MEDS ORDERED: Loratadine 10 MG Tab PO PRN (07:30)
[2017-06-06] MEDS: Dextrose 5%-0.9% NaCl 1,000 ML IV SCH ×2 (08:17→17:59)
[2017-06-06] MEDS: Saccharomyces Boulardii (Probiotic) 250 MG Cap PO SCH ×2 (08:20→22:07)
[2017-06-06] MEDS: Enoxaparin 40 MG/0.4 ML Syringe SUBCUT SCH (08:20)
[2017-06-06] MEDS: Hydrochlorothiazide 12.5 MG Cap PO SCH (08:21)
[2017-06-06] MEDS: Ascorbic Acid 500 MG Tab PO SCH ×2 (08:21→22:07)
[2017-06-06] MEDS: Cholecalciferol (Vitamin D3) 1,000 Unit Tab PO SCH (08:21)
[2017-06-06] MEDS: Calcium Carbonate 600 MG Tab PO SCH ×3 (08:22→16:19)
[2017-06-06] MEDS: Amoxicillin/Clavulanate K 875-125 MG Tab PO SCH ×2 (08:22→22:08)
[2017-06-06] MEDS: Ibuprofen 600 MG Tab PO SCH ×2 (08:24→22:07)
[2017-06-06] MEDS: Fish Oil/Omega-3 Fatty Acids 1 Gm Cap PO SCH ×3 (08:47→22:07)
[2017-06-06] MEDS ORDERED: Enoxaparin 30 MG/0.3 ML Syringe SUBCUT SCH (09:00)
[2017-06-06] MEDS ORDERED: Oxymetazoline 0.05% Nasal Spray 15 ML Bottle NAS SCH (09:00)
[2017-06-06] MEDS ORDERED: Magnesium Oxide 400 MG Tab PO ONE (09:00)
[2017-06-06] MEDS ORDERED: Saccharomyces Boulardii (Probiotic) 250 MG Cap PO ONE (14:38)
[2017-06-06] MEDS ORDERED: IBUPROFEN PO SCH (21:00)
[2017-06-06] MEDS ORDERED: DIPHENHYDRAMINE CIT PO SCH (21:00)
[2017-06-06] MEDS ORDERED: [UNRECOGNIZED DRUG - OTHER] PO SCH (21:00)
[2017-06-06] MEDS: Temazepam 15 MG Cap PO PRN (22:07)
[2017-06-06] MEDS: Levothyroxine 100 MCG Tab PO SCH (22:07)
[2017-06-06] MEDS: TERIPARATIDE 20 MCG SQ SCH (22:11)
[2017-06-07] MEDS: Dextrose 5%-0.9% NaCl 1,000 ML IV SCH (05:47)
[2017-06-07] MEDS: Calcium Carbonate 600 MG Tab PO SCH ×3 (05:48→16:24)
[2017-06-07] MEDS: Cholecalciferol (Vitamin D3) 1,000 Unit Tab PO SCH (09:43)
[2017-06-07] MEDS: Hydrochlorothiazide 12.5 MG Cap PO SCH (09:44)
[2017-06-07] MEDS: Saccharomyces Boulardii (Probiotic) 250 MG Cap PO SCH ×2 (09:45→22:37)
[2017-06-07] MEDS: Ascorbic Acid 500 MG Tab PO SCH ×2 (09:45→22:35)
[2017-06-07] MEDS: Enoxaparin 40 MG/0.4 ML Syringe SUBCUT SCH ×2 (09:45→09:52)
[2017-06-07] MEDS: Amoxicillin/Clavulanate K 875-125 MG Tab PO SCH ×2 (09:45→22:35)
[2017-06-07] MEDS: Ibuprofen 600 MG Tab PO SCH (09:46)
[2017-06-07] MEDS: Fish Oil/Omega-3 Fatty Acids 1 Gm Cap PO SCH ×2 (09:46→22:35)
[2017-06-07] MEDS ORDERED: Magnesium Sulfate/Water 2 GM in Premix Bag 1 BAG IV ONE (12:00)
--- NOTE | 2017-06-07 16:20 | PCM.PN ---
- General Info Date of Service: 06/07/17 Functional Status: Reports: Pain Controlled, Tolerating Diet, Ambulating, Urinating - Review of Systems General: Reports: No Symptoms HEENT: Reports: Sinus Congestion Pulmonary: Reports: No Symptoms Cardiovascular: Reports: No Symptoms Gastrointestinal: Reports: No Symptoms Genitourinary: Reports: No Symptoms Musculoskeletal: Reports: No Symptoms Skin: Reports: No Symptoms Neurological: Reports: No Symptoms Psychiatric: Reports: No Symptoms - Patient Data Vitals - Most Recent: Last Vital Signs Temp 36.8 C 06/07/17 15:03 Pulse 93 06/07/17 15:03 Resp 12 06/07/17 15:03 BP 131/68 06/07/17 15:03 Pulse Ox 94 L 06/07/17 15:03 Weight - Most Recent: 78.199 kg I&O - Last 24 Hours: Intake & Output 06/07/17 06/07/17 06/07/17 06:59 14:59 22:59 Intake Total 1700 300 700 Output Total 1700 115 Balance 0 300 585 Lab Results Last 24 Hours: Laboratory Results - last 24 hr 06/07/17 06/07/17 06/07/17 Range/Units 05:55 05:55 05:55 WBC 3.25 L (3.98-10.04) K/mm3 RBC 3.77 L (3.98-5.22) M/mm3 Hgb 12.1 (11.2-15.7) gm/L Hct 36.1 (34.1-44.9) % MCV 95.8 H (79.4-94.8) fl MCH 32.1 (25.6-32.2) pg MCHC 33.5 (32.2-35.5) g/dl RDW Std Deviation 41.9 (36.4-46.3) fL Plt Count 154 L (182-369) K/mm3 MPV 10.2 (9.4-12.3) fl Neut % (Auto) 39.7 (34.0-71.1) % Lymph % (Auto) 49.2 (19.3-51.7) % Caroline % (Auto) 7.4 (4.7-12.5) % Eos % (Auto) 3.4 (0.7-5.8) Baso % (Auto) 0.3 (0.1-1.2) % Neut # (Auto) 1.29 L (1.56-6.13) K/mm3 Lymph # (Auto) 1.60 (1.18-3.74) K/mm3 Caroline # (Auto) 0.24 (0.24-0.36) K/mm3 Eos # (Auto) 0.11 (0.04-0.36) K/mm3 Baso # (Auto) 0.01 (0.01-0.08) K/mm3 Manual Slide Review Normal smear ESR 16 (0-20) mm/hr Magnesium 1.6 L (1.8-2.4) mg/dl C-Reactive Protein 4.3 H* (<1.0) mg/dL Med Orders - Current: Current Medications Albuterol (Proventil Hfa) 0 gm INH Q4H PRN PRN Reason: Wheezing Albuterol/Ipratropium (Duoneb 3.0-0.5 Mg/3 Ml) 3 ml NEB Q4H PRN PRN Reason: Shortness Of Breath/wheezing Amoxicillin/Clavulanate Potassium (Augmentin 875 Mg/125 Mg) 1 tab PO BID [facility] Last Admin: 06/07/17 09:45 Dose: 1 tab Ascorbic Acid (Vitamin C) 500 mg PO BID [facility] Last Admin: 06/07/17 09:45 Dose: 500 mg Calcium Carbonate/Glycine (Calcium Carbonate) 600 mg PO BIDMEALS [facility] Last Admin: 06/07/17 06:04 Dose: Not Given Cholecalciferol (Vitamin D3) 5,000 units PO DAILY [facility] Last Admin: 06/07/17 09:43 Dose: 5,000 units Enoxaparin Sodium (Lovenox) 40 mg SUBCUT DAILY [facility] Last Admin: 06/07/17 09:52 Dose: Not Given Fish Oil (Fish Oil) 1 gm PO BID [facility] Last Admin: 06/07/17 09:46 Dose: Not Given Flunisolide (Nasalide Nasal [place]) 0 ml NASBOTH BID [facility] Last Admin: 06/07/17 09:45 Dose: 2 spray Guaifenesin (Mucinex) 600 mg PO BID PRN PRN Reason: Allergies Last Admin: 06/06/17 08:22 Dose: 600 mg Hydralazine HCl (Apresoline) 20 mg IVPUSH Q4H PRN PRN Reason: Hypertension Hydrochlorothiazide (Hydrochlorothiazide) 12.5 mg PO DAILY [facility] Last Admin: 06/07/17 09:44 Dose: 12.5 mg Hydromorphone HCl (Dilaudid) 0.25 mg IVPUSH Q2H PRN PRN Reason: Pain (severe 7-10) Promethazine HCl 12.5 mg/ (Sodium Chloride) 50.5 mls @ 100 mls/hr IV Q6H PRN PRN Reason: Nausea/Vomiting Ibuprofen (Motrin) 600 mg PO Q6H PRN PRN Reason: Pain (moderate 4-6) Last Admin: 06/06/17 14:24 Dose: 600 mg Ibuprofen (Motrin) 600 mg PO BID [facility] Last Admin: 06/07/17 09:46 Dose: Not Given Levothyroxine Sodium (Synthroid) 100 mcg PO BEDTIME [facility] Last Admin: 06/06/17 22:07 Dose: 100 mcg Loratadine (Claritin) 10 mg PO DAILY PRN PRN Reason: ALLERGIES Last Admin: 06/06/17 08:21 Dose: 10 mg Lorazepam (Ativan) 0.5 mg IV Q6H PRN PRN Reason: Anxiety Lorazepam (Ativan) 2 mg IVPUSH Q4H PRN PRN Reason: Seizures Magnesium Sulfate (Pharmacy To Dose - Magnesium Replacement) 1 dose .XX ASDIRECTED [facility] Metoprolol Tartrate (Lopressor) 5 mg IVPUSH Q4H PRN PRN Reason: Tachycardia Teriparatide. 20 Mcg (Forteo) Pt Own Med 0 mcg SQ BEDTIME [facility] Last Admin: 06/06/17 22:11 Dose: 20 mcg Ondansetron HCl (Zofran) 4 mg IV Q6H PRN PRN Reason: Nausea/Vomiting Oxycodone HCl (Oxycodone) 5 mg PO Q4H PRN PRN Reason: Pain (moderate 4-6) Potassium Chloride (Pharmacy To Dose - Potassium Replacement) 1 dose .XX ASDIRECTED [facility] Saccharomyces Boulardii (Florastor) 250 mg PO BID [facility] Last Admin: 06/07/17 09:45 Dose: 250 mg Temazepam (Restoril) 15 mg PO BEDTIME PRN PRN Reason: Sleep Last Admin: 06/06/17 22:07 Dose: 15 mg Discontinued Medications Acetaminophen (Tylenol) 650 mg PO Q4H PRN PRN Reason: Pain (Mild 1-3)/fever Amoxicillin/Clavulanate Potassium (Augmentin Xr 1000 Mg) 1 tab PO Q12HR [facility] Amoxicillin/Clavulanate Potassium (Augmentin Xr 1000 Mg) 1 tab PO ONETIME ONE Stop: 06/05/17 14:38 Last Admin: 06/05/17 20:47 Dose: Not Given Hydromorphone HCl (Dilaudid) 0.25 mg IVPUSH Q2H PRN PRN Reason: Pain (severe 7-10) Dextrose/Sodium Chloride (Dextrose 5%-Normal Saline) 1,000 mls @ 500 mls/hr IV ASDIRECTED [facility] Last Admin: 06/05/17 10:23 Dose: 500 mls/hr Levofloxacin/Dextrose 750 mg/ (Premix) 150 mls @ 100 mls/hr IV ONETIME ONE Stop: 06/05/17 12:23 Last Admin: 06/05/17 11:20 Dose: 100 mls/hr Dextrose/Sodium Chloride (Dextrose 5%-Normal Saline) 1,000 mls @ 100 mls/hr IV ASDIRECTED [facility] Last Admin: 06/07/17 05:47 Dose: 100 mls/hr Magnesium Sulfate 2 gm/ Premix 50 mls @ 25 mls/hr IV ONETIME ONE Stop: 06/07/17 13:59 Last Admin: 06/07/17 12:36 Dose: 25 mls/hr Ibuprofen (Motrin) 600 mg PO ONETIME ONE Stop: 06/05/17 09:50 Last Admin: 06/05/17 10:25 Dose: 600 mg Ketorolac Tromethamine (Toradol) 30 mg IVPUSH ONETIME [facility] Last Admin: 06/05/17 13:49 Dose: 30 mg Magnesium Oxide (Magnesium Oxide) 800 mg PO ONETIME ONE Stop: 06/06/17 09:01 Last Admin: 06/06/17 08:48 Dose: 800 mg Non-Formulary Medication (Ibuprofen/Diphenhydramine Cit [Eql Ibuprofen Pm Caplet ]) 200 mg PO BEDTIME [facility] Ondansetron HCl (Zofran) 4 mg IVPUSH ONETIME ONE Stop: 06/05/17 09:50 Last Admin: 06/05/17 10:25 Dose: 4 mg Oseltamivir Phosphate (Tamiflu) 75 mg PO ONETIME ONE Stop: 06/05/17 12:15 Last Admin: 06/05/17 13:14 Dose: 75 mg Oxymetazoline HCl (Afrin Original 0.05% Nasal [place]) 15 ml DAMIAN DAILY [facility] Saccharomyces Boulardii (Florastor) 250 mg PO DAILY ONE Stop: 06/06/17 14:39 - Exam Quality Assessment: DVT Prophylaxis General: Alert, Oriented, Cooperative, No Acute Distress HEENT: Pupils Equal, Pupils Reactive, EOMI Neck: Supple, Trachea Midline Lungs: Normal Respiratory Effort Cardiovascular: Regular Rate, Regular Rhythm GI/Abdominal Exam: Normal Bowel Sounds, Soft, Non-Tender, No Organomegaly, No Distention (Female) Exam: Deferred Back Exam: Normal Inspection Extremities: Normal Inspection Skin: Warm Neurological: No New Focal Deficit, Normal Gait, Normal Speech Psy/Mental Status: Alert, Normal Affect, Normal Mood - Problem List & Annotations (1) Hypoxia SNOMED Code(s): 811646590, 836179483 Code(s): R09.02 - HYPOXEMIA Status: Acute Current Visit: Yes (2) Influenza A SNOMED Code(s): 839156202 Code(s): J10.1 - FLU DUE TO OTH IDENT INFLUENZA VIRUS W OTH RESP MANIFEST Status: Acute Current Visit: Yes (3) Recurrent pansinusitis SNOMED Code(s): 558767466, 460685268 Code(s): J01.41 - ACUTE RECURRENT PANSINUSITIS Status: Acute Current Visit: Yes (4) Hypertension SNOMED Code(s): 65216589 Code(s): I10 - ESSENTIAL (PRIMARY) HYPERTENSION Status: Acute Current Visit: Yes Qualifiers: Qualified Code(s): I10 - Essential (primary) hypertension (5) Hypothyroidism SNOMED Code(s): 06322307 Code(s): E03.9 - HYPOTHYROIDISM, UNSPECIFIED Status: Acute Current Visit : Yes Qualifiers: Qualified Code(s): E03.9 - Hypothyroidism, unspecified (6) Diarrhea SNOMED Code(s): 86303626 Code(s): R19.7 - DIARRHEA, UNSPECIFIED Status: Acute Current Visit: Yes - Problem List Review Problem List Initiated/Reviewed/Updated: Yes - Plan Plan:: Assessment/Plan: Acute: Acute Bacterial Rhinosinusitis, Improved - Carries hx/o chronic sinusitis - Has has issues with her nasal septum in the past - Sinus tenderness on palpation - Discolored nasal drainage-yellowish - Received IV Levaquin in ED - Nasal Decongestant - Continue Augmentin po BID - She breaths better Viral Illness - Pos Influenza A + - CRP is 10.2 (6.4) - She is now outside the window for treatment - Supportive care Generalized Body Aches/Myalgia - 2/2 Above - Supportive care Hypomagnesemia - Mg is 1.6 - 2/2 inadequate intake - Pharmacy to replete and monitor Resolved: S/p Watery Diarrhea - Recent [employer] Cruise Trip - R/o Noro Virus - Had no issues with seafood in the past - Did not eat any local food - Supportive Care and Monitor e-lytes Chronic: Impaired Vision HTN Hypothyroidism Hx/o Liver CA S/p Partial Resection Plan: She looks much better clinically Continue Isolation Protocol Routine AM Labs Start clear liquid diet Complete remaining IV Fluids then d/c Continue PT/OT SW/CM for d/c planning Code status: 1 Possible d/c in AM
[2017-06-07] MEDS ORDERED: guaiFENesin/Dextromethorphan 100-10 MG/5 ML Soln 5 ML Cup PO PRN (22:24)
[2017-06-07] MEDS: TERIPARATIDE 20 MCG SQ SCH (22:43)
[2017-06-07] MEDS: Levothyroxine 100 MCG Tab PO SCH (22:44)
[2017-06-07] MEDS: Temazepam 15 MG Cap PO PRN (23:00)
[2017-06-08] MEDS ORDERED: Levothyroxine 100 MCG Tab PO SCH (06:00)
[2017-06-08] MEDS: Calcium Carbonate 600 MG Tab PO SCH ×2 (06:06→07:55)
[2017-06-08] MEDS: Saccharomyces Boulardii (Probiotic) 250 MG Cap PO SCH ×2 (07:54→08:04)
[2017-06-08] MEDS: Amoxicillin/Clavulanate K 875-125 MG Tab PO SCH ×2 (07:55→08:04)
[2017-06-08] MEDS: Fish Oil/Omega-3 Fatty Acids 1 Gm Cap PO SCH ×2 (07:55→08:04)
[2017-06-08] MEDS: Cholecalciferol (Vitamin D3) 1,000 Unit Tab PO SCH ×2 (07:56→08:05)
[2017-06-08] MEDS: Ascorbic Acid 500 MG Tab PO SCH ×2 (07:57→08:05)
[2017-06-08] MEDS: Hydrochlorothiazide 12.5 MG Cap PO SCH ×2 (07:57→08:04)
[2017-06-08] MEDS: Enoxaparin 40 MG/0.4 ML Syringe SUBCUT SCH (08:04)
[2017-06-08] MEDS: Ibuprofen 600 MG Tab PO SCH (08:04)
[2017-06-08 12:49] VITALS: BP 122/87
--- NOTE | 2017-06-09 16:11 | PCM.DCSUM1 ---
Discharge Summary - Hospital Course Free Text/Narrative:: 67-year-old white female with past medical history of impaired vision, hypertension, hypothyroidism, history of liver cancer status post resection, who presents to the emergency department with complains of fever with chills that has been going on for the past 3 days. She reports a subjective fever as high as 102.3 at home. Her chief complaints are associated with facial tenderness with nasal drainage that is yellowish in color, left ear pain, productive cough with sputum, generalized aches and pains, headache, nausea, watery diarrhea and anorexia. She denies any skin rash, or joint pain. Patient has taken a cruise to [place] but got sick on June 01 while she was in [place]. Patient has had seafood, plenty of seafood but denies drinking or eating local foods. She denies any seafood intolerance or allergies in the past. CT scan maxillofacial sinuses without contrast report reads air fluid levels within both maxillary and frontal sinuses. Current findings most likely due to recurrent acute sinusitis. Fairly severe mucosal thickening is noted within the ethmoid sinuses. Chest x-ray report reads nothing acute is appreciated. Patient was treated for Influenza A as well as acute on chronic bacterial rhinosinusitis. Medications: Augmentin 875 mg BID for 2 weeks; 1 refill Robitussin DM 10 cc po Q 6 hours prn cough. Follow up-->TBA by patient who will schedule ENT appt Restrictions Avoid public areas until after 06/11/17. - Discharge Data Discharge Date: 06/08/17 Discharge Disposition: Home, Self-Care 01 Condition: Good - Discharge Diagnosis/Problem(s) (1) Hypoxia SNOMED Code(s): 643754925, 131676666 ICD Code: R09.02 - HYPOXEMIA Status: Acute (2) Influenza A SNOMED Code(s): 226294353 ICD Code: J10.1 - FLU DUE TO OTH IDENT INFLUENZA VIRUS W OTH RESP MANIFEST Status: Acute (3) Recurrent pansinusitis SNOMED Code(s): 896174678, 709063704 ICD Code: J01.41 - ACUTE RECURRENT PANSINUSITIS Status: Acute (4) Hypertension SNOMED Code(s): 42485424 ICD Code: I10 - ESSENTIAL (PRIMARY) HYPERTENSION Status: Acute Qualifiers: Hypertension type: essential hypertension Qualified Code(s): I10 - Essential (primary) hypertension (5) Hypothyroidism SNOMED Code(s): 71710286 ICD Code: E03.9 - HYPOTHYROIDISM, UNSPECIFIED Status: Acute Qualifiers: Hypothyroidism type: unspecified Qualified Code(s): E03.9 - Hypothyroidism , unspecified (6) Diarrhea SNOMED Code(s): 82451150 ICD Code: R19.7 - DIARRHEA, UNSPECIFIED Status: Acute - Patient Instructions Diet: Usual Diet as Tolerated Activity: As Tolerated Driving: May Drive Today Showering/Bathing: May Shower Notify Provider of: Fever, Nausea and/or Vomiting - Discharge Plan Prescriptions/Med Rec: Amoxicillin/Clavulanate K [Augmentin 875 MG/125 MG] 1 tab PO BID #28 tablet Dextromethorphan/guaiFENesin [Robitussin DM] 10 ml PO Q6H PRN #180 cup PRN Reason: Cough Home Medications: Home Meds Albuterol [Proventil HFA] 6.7 gm INH Q4HR PRN 06/05/17 [History] Ascorbic Acid [Vitamin C] 500 mg PO BID 06/05/17 [History] Calcium Carbonate 250 mg PO DAILY 06/05/17 [History] Cholecalciferol (Vitamin D3) [Vitamin D3] 5,000 unit PO DAILY 06/05/17 [History] Fexofenadine HCl 60 mg PO BID PRN 06/05/17 [History] Fluticasone Propionate [Flovent] 2 sprays NASBOTH DAILY 06/05/17 [History] Hydrochlorothiazide 12.5 mg PO DAILY 06/05/17 [History] Ibuprofen 600 mg PO BID 06/05/17 [History] Ibuprofen/Diphenhydramine Cit [Eql Ibuprofen Pm Caplet] 200 mg PO BEDTIME [History] Levothyroxine Sodium [Levo-T] 100 mcg PO ACBREAKFAST 06/05/17 [History] guaiFENesin [Guaifenesin ER] 600 mg PO BID PRN 06/05/17 [History] Galva-3/DHA/Epa/Fish Oil [Galva-3 Fish Oil EC 1,000 mg] 1,000 mg PO BID [History] Teriparatide. 20 mcg SQ BEDTIME 06/06/17 [History] Amoxicillin/Clavulanate K [Augmentin 875 MG/125 MG] 1 tab PO BID #28 tablet 09/14 [Rx] Dextromethorphan/guaiFENesin [Robitussin DM] 10 ml PO Q6H PRN #180 cup 06/08/17 [Rx] Patient Handouts: Influenza, Adult, [id number] Forms: ED Department Discharge, ED Return to Work/School Form Referrals: Scott Wild MD [Primary Care Provider] - (Please see Dr. Wild at [facility] on at 2:30 PM 06/14/17.) - Discharge Summary/Plan Comment DC Time >30 min.: No - General Info Date of Service: 06/05/17 Functional Status: Reports: Tolerating Diet, Ambulating, Urinating - Review of Systems General: Reports: No Symptoms HEENT: Reports: No Symptoms Pulmonary: Reports: No Symptoms Cardiovascular: Reports: No Symptoms Gastrointestinal: Reports: No Symptoms Genitourinary: Reports: No Symptoms Musculoskeletal: Reports: No Symptoms Skin: Reports: No Symptoms Neurological: Reports: No Symptoms Psychiatric: Reports: No Symptoms - Patient Data Vitals - Most Recent: Last Vital Signs Temp 36.9 C 06/08/17 12:22 Pulse 75 06/08/17 12:22 Resp 13 06/08/17 12:22 BP 122/87 06/08/17 12:22 Pulse Ox 99 06/08/17 12:22 Weight - Most Recent: 76.657 kg Med Orders - Current: Current Medications Discontinued Medications Acetaminophen (Tylenol) 650 mg PO Q4H PRN PRN Reason: Pain (Mild 1-3)/fever Albuterol (Proventil Hfa) 0 gm INH Q4H PRN PRN Reason: Wheezing Albuterol/Ipratropium (Duoneb 3.0-0.5 Mg/3 Ml) 3 ml NEB Q4H PRN PRN Reason: Shortness Of Breath/wheezing Amoxicillin/Clavulanate Potassium (Augmentin Xr 1000 Mg) 1 tab PO Q12HR [facility] Amoxicillin/Clavulanate Potassium (Augmentin Xr 1000 Mg) 1 tab PO ONETIME ONE Stop: 06/05/17 14:38 Last Admin: 06/05/17 20:47 Dose: Not Given Amoxicillin/Clavulanate Potassium (Augmentin 875 Mg/125 Mg) 1 tab PO BID [facility] Last Admin: 06/08/17 08:04 Dose: Not Given Ascorbic Acid (Vitamin C) 500 mg PO BID [facility] Last Admin: 06/08/17 08:05 Dose: Not Given Calcium Carbonate/Glycine (Calcium Carbonate) 600 mg PO BIDMEALS [facility] Last Admin: 06/08/17 07:55 Dose: 600 mg Cholecalciferol (Vitamin D3) 5,000 units PO DAILY [facility] Last Admin: 06/08/17 08:05 Dose: Not Given Enoxaparin Sodium (Lovenox) 40 mg SUBCUT DAILY [facility] Last Admin: 06/08/17 08:04 Dose: Not Given Fish Oil (Fish Oil) 1 gm PO BID [facility] Last Admin: 06/08/17 08:04 Dose: Not Given Flunisolide (Nasalide Nasal [place]) 0 ml NASBOTH BID [facility] Last Admin: 06/08/17 08:04 Dose: Not Given Guaifenesin (Mucinex) 600 mg PO BID PRN PRN Reason: Allergies Last Admin: 06/06/17 08:22 Dose: 600 mg Guaifenesin/Phenylephrine HCl (Robitussin Dm) 10 ml PO Q4H PRN PRN Reason: cough Last Admin: 06/07/17 22:59 Dose: 10 ml Hydralazine HCl (Apresoline) 20 mg IVPUSH Q4H PRN PRN Reason: Hypertension Hydrochlorothiazide (Hydrochlorothiazide) 12.5 mg PO DAILY [facility] Last Admin: 06/08/17 08:04 Dose: Not Given Hydromorphone HCl (Dilaudid) 0.25 mg IVPUSH Q2H PRN PRN Reason: Pain (severe 7-10) Hydromorphone HCl (Dilaudid) 0.25 mg IVPUSH Q2H PRN PRN Reason: Pain (severe 7-10) Dextrose/Sodium Chloride (Dextrose 5%-Normal Saline) 1,000 mls @ 500 mls/hr IV ASDIRECTED [facility] Last Admin: 06/05/17 10:23 Dose: 500 mls/hr Levofloxacin/Dextrose 750 mg/ (Premix) 150 mls @ 100 mls/hr IV ONETIME ONE Stop: 06/05/17 12:23 Last Admin: 06/05/17 11:20 Dose: 100 mls/hr Promethazine HCl 12.5 mg/ (Sodium Chloride) 50.5 mls @ 100 mls/hr IV Q6H PRN PRN Reason: Nausea/Vomiting Dextrose/Sodium Chloride (Dextrose 5%-Normal Saline) 1,000 mls @ 100 mls/hr IV ASDIRECTED [facility] Last Admin: 06/07/17 05:47 Dose: 100 mls/hr Magnesium Sulfate 2 gm/ Premix 50 mls @ 25 mls/hr IV ONETIME ONE Stop: 06/07/17 13:59 Last Admin: 06/07/17 12:36 Dose: 25 mls/hr Ibuprofen (Motrin) 600 mg PO ONETIME ONE Stop: 06/05/17 09:50 Last Admin: 06/05/17 10:25 Dose: 600 mg Ibuprofen (Motrin) 600 mg PO Q6H PRN PRN Reason: Pain (moderate 4-6) Last Admin: 06/06/17 14:24 Dose: 600 mg Ibuprofen (Motrin) 600 mg PO BID [facility] Last Admin: 06/08/17 08:04 Dose: Not Given Ketorolac Tromethamine (Toradol) 30 mg IVPUSH ONETIME [facility] Last Admin: 06/05/17 13:49 Dose: 30 mg Levothyroxine Sodium (Synthroid) 100 mcg PO BEDTIME [facility] Last Admin: 06/07/17 22:44 Dose: Not Given Levothyroxine Sodium (Synthroid) 100 mcg PO DAILY@0600 [facility] Last Admin: 06/08/17 06:06 Dose: 100 mcg Loratadine (Claritin) 10 mg PO DAILY PRN PRN Reason: ALLERGIES Last Admin: 06/06/17 08:21 Dose: 10 mg Lorazepam (Ativan) 0.5 mg IV Q6H PRN PRN Reason: Anxiety Lorazepam (Ativan) 2 mg IVPUSH Q4H PRN PRN Reason: Seizures Magnesium Oxide (Magnesium Oxide) 800 mg PO ONETIME ONE Stop: 06/06/17 09:01 Last Admin: 06/06/17 08:48 Dose: 800 mg Magnesium Sulfate (Pharmacy To Dose - Magnesium Replacement) 1 dose .XX ASDIRECTED [facility] Metoprolol Tartrate (Lopressor) 5 mg IVPUSH Q4H PRN PRN Reason: Tachycardia Non-Formulary Medication (Ibuprofen/Diphenhydramine Cit [Eql Ibuprofen Pm Caplet ]) 200 mg PO BEDTIME [facility] Teriparatide. 20 Mcg (Forteo) Pt Own Med 0 mcg SQ BEDTIME [facility] Last Admin: 06/07/17 22:43 Dose: 1 mcg Ondansetron HCl (Zofran) 4 mg IVPUSH ONETIME ONE Stop: 06/05/17 09:50 Last Admin: 06/05/17 10:25 Dose: 4 mg Ondansetron HCl (Zofran) 4 mg IV Q6H PRN PRN Reason: Nausea/Vomiting Oseltamivir Phosphate (Tamiflu) 75 mg PO ONETIME ONE Stop: 06/05/17 12:15 Last Admin: 06/05/17 13:14 Dose: 75 mg Oxycodone HCl (Oxycodone) 5 mg PO Q4H PRN PRN Reason: Pain (moderate 4-6) Oxymetazoline HCl (Afrin Original 0.05% Nasal [place]) 15 ml DAMIAN DAILY [facility] Potassium Chloride (Pharmacy To Dose - Potassium Replacement) 1 dose .XX ASDIRECTED [facility] Saccharomyces Boulardii (Florastor) 250 mg PO BID [facility] Last Admin: 06/08/17 08:04 Dose: Not Given Saccharomyces Boulardii (Florastor) 250 mg PO DAILY ONE Stop: 06/06/17 14:39 Temazepam (Restoril) 15 mg PO BEDTIME PRN PRN Reason: Sleep Last Admin: 06/07/17 23:00 Dose: 15 mg - Exam Quality Assessment: Reports: DVT Prophylaxis General: Reports: Alert, Oriented, Cooperative, No Acute Distress HEENT: Reports: Pupils Equal, Pupils Reactive, EOMI Neck: Reports: Supple, Trachea Midline Lungs: Reports: Normal Respiratory Effort Cardiovascular: Reports: Regular Rate, Regular Rhythm GI/Abdominal Exam: Normal Bowel Sounds, Soft, Non-Tender, No Organomegaly, No Distention (Female) Exam: Deferred Rectal (Female) Exam: Deferred Back Exam: Reports: Normal Inspection Extremities: Normal Inspection, Normal Range of Motion, No Pedal Edema, Normal Capillary Refill Skin: Reports: Warm, Dry, Intact Neurological: Reports: No New Focal Deficit, Normal Gait, Normal Speech Psy/Mental Status: Reports: Alert, Normal Affect, Normal Mood *Q Meaningful Use (DIS) - VTE *Q VTE Criteria *Q: - Stroke *Q Stroke Criteria *Q: - AMI *Q AMI Criteria *Q:
== END 2017-06-08 13:46 | disposition home or self-care (01) | DRG 195 ==
LOC: JD.ED 08:27 → JD.MS 15:35
PROVIDERS: ADMIT Internal Medicine; ATTEND Internal Medicine
DX: J09.X2 Influenza due to identified novel influenza A virus with other respiratory manifestations (principal); J32.4 Chronic pansinusitis; J10.1 Influenza due to other identified influenza virus with other respiratory manifestations; R19.7 Diarrhea, unspecified; E83.42 Hypomagnesemia; R09.02 Hypoxemia; I10 Essential (primary) hypertension; E03.9 Hypothyroidism, unspecified; H54.7 Unspecified visual loss; Z85.05 Personal history of malignant neoplasm of liver; Z88.5 Allergy status to narcotic agent; Z88.6 Allergy status to analgesic agent; Z91.041 Radiographic dye allergy status; Z79.899 Other long term (current) drug therapy
CPT/HCPCS: 36415; 70486; 71020; 80053; 81001; 85025; 85652; 86140; 87040 ×2; 87804 ×2; 93005; 96361; 96365; 96366; 96375; 99285; A9270 ×2; J1885; J1956; J2405; J7042; 83735; 87798; 97162-GP; 97165-GO; 99284; J1650; J3475

== ENCOUNTER 2020-06-07 07:26 | Day surgery (SDC) | payer MEDICARE, BC ==
--- NOTE | 2020-06-04 07:16 | PCM.PREANE ---
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-motion sickness) Other: Reports: None, Liver Problems (Prior history of liver surgery: lobectomies), Thyroid Problems (Hypothyroid), Sinus Problem (chronic sinusitis), Anxiety - Physical Assessment NPO Status Date: 06/06/20 NPO Status Time: 23:45 Vital Signs: HR:76 B/P:150/80 Sat:97% Temp:97.1 Resp:16 Height: 1.57 m Weight: 76 kg ASA Class: 3 Mental Status: Alert & Oriented x3 Airway Class: Mallampati = 2 Dentition: Reports: Normal Dentition, Caries Thyro-Mental Finger Breadths: 3 Mouth Opening Finger Breadths: 2 ROM/Head Extension: Full Lungs: Clear to Auscultation, Normal Respiratory Effort Cardiovascular: Regular Rate, Regular Rhythm, No Murmurs - Lab Values: Laboratory Last Values MRSA (PCR) Negative 05/26/20 14:03 All labs reviewed and noted and within acceptable ranges to proceed with scheduled procedure. - Imaging/EKG Impressions: CXR: no acute abnormalities EKG:SR rate= 71 - Allergies Allergies/Adverse Reactions: Allergies Allergy/AdvReac Type Severity Reaction Status Date / Time iodine Allergy Rash Verified 06/04/20 12:12 iodoform Allergy Rash Verified 06/04/20 12:12 potassium iodide Allergy Rash Verified 06/04/20 12:12 povidone-iodine Allergy Rash Verified 06/04/20 12:12 codeine AdvReac Headache Verified 06/05/17 14:39 meperidine [From Demerol] AdvReac Nausea and Verified 06/05/17 14:39 Vomiting morphine AdvReac Depression Verified 06/05/17 14:39 IV contrast dye Allergy Rash Uncoded 06/05/17 09:00 P T U Allergy Rash Uncoded 06/05/17 09:00 - Anesthesia Plan Pre-Op Medication Ordered: None - Acknowledgements Anesthesia Type Planned: Spinal (Right Adductor Canal Block under US guidance for post operative pain control requested by Dr. Smith.) Pt an Appropriate Candidate for the Planned Anesthesia: Yes Alternatives and Risks of Anesthesia Discussed w Pt/Guardian: Yes Pt/Guardian Understands and Agrees with Anesthesia Plan: Yes PreAnesthesia Questionnaire HEENT History: Reports: Impaired Vision Other HEENT History: wears eyeglasses Cardiovascular History: Reports: Hypertension Gastrointestinal History: Reports: Other (See Below) Other Gastrointestinal History: part of liver removed. MANAGER QUALITY IMPROVEMENT History: Reports: Musculoskeletal History: Reports: Arthritis, Osteoporosis Endocrine/Metabolic History: Reports: Hypothyroidism Other Endocrine/Metabolic History: Graves Dx. Oncologic (Cancer) History: Reports: Liver - Infectious Disease History Infectious Disease History: Reports: Chicken Pox, Measles, Mumps, Shingles - Past Surgical History GI Surgical History: Reports: Cholecystectomy Musculoskeletal Surgical History: Reports: Other (See Below) Other Musculoskeletal Surgeries/Procedures:: TMJ surgery. - HOME MEDS Home Medications: Home Meds Cholecalciferol (Vitamin D3) [Vitamin D3] 5,000 unit PO DAILY 06/05/17 [History] Fluticasone Propionate [Flovent] 2 sprays NASBOTH DAILY PRN 06/05/17 [History] Ibuprofen 600 mg PO ASDIRECTED PRN 06/05/17 [History] Levothyroxine Sodium [Levo-T] 100 mcg PO ACBREAKFAST 06/05/17 [History] guaiFENesin [Guaifenesin ER] 600 mg PO BID PRN 06/05/17 [History] hydroCHLOROthiazide [Hydrochlorothiazide] 12.5 mg PO DAILY 06/05/17 [History] Denosumab [Prolia] 1 injection INJECT ASDIRECTED 06/04/20 [History] Fish Oil/DHA/EPA [Fish Oil 1,200 MG] 2,400 unit PO BID 06/04/20 [History] Meloxicam [Mobic] 7.5 mg PO DAILY 06/04/20 [History] Montelukast [Singulair] 10 mg PO BEDTIME 06/04/20 [History] Multivitamin [Multivitamins] 1 tab PO DAILY 06/04/20 [History] Non-Formulary Medication [NF Drug] 1 tab PO BEDTIME 06/04/20 [History] Non-Formulary Medication [NF Drug] 2 tab PO BEDTIME 06/04/20 [History] Non-Formulary Medication [NF Drug] 250 mg PO BID 06/04/20 [History] - CURRENT (IN HOUSE) MEDS Current Meds: Current Medications Lactated Ringer's (Ringers, Lactated) 1,000 mls @ 125 mls/hr IV ASDIRECTED BOOGIE Stop: 06/07/20 23:00 Lidocaine/Sodium Bicarbonate (Buffered Lidocaine 1% In Ns 8.4%) 0.25 ml IDERM ONETIME PRN PRN Reason: Prior to IV Start Stop: 06/07/20 23:00 Sodium Chloride (Saline Flush) 10 ml FLUSH ASDIRECTED PRN PRN Reason: Keep Vein Open Stop: 06/07/20 23:00
[~2020-06-07 07:26] MED LIST: Bisacodyl 5 MG Tab PO PRN; Dexamethasone 4 MG/ML 5 ML MDV ONE; EPINEPHrine 1 MG/ML SDV ONE; Ketamine 500 mg/10 ML MDV ONE; Ketorolac 30 MG/ML SDV ONE; Lactated Ringers 1,000 ML IV SCH; Lactated Ringers 1,000 ML ONE; Lidocaine 1% 4 ML ONE; Lidocaine 1%/Sod Bicarbonate in NS 8.4% 1 ML Syringe IDERM PRN; Midazolam 1 MG/ML 2 ML SDV ONE; Morphine Sulfate 8 MG, EPINEPHrine 0.3 MG, Cefuroxime 750 MG, Ketorolac 30 MG, Sodium C... PRN; Naloxone 0.4 MG/ML SDV IVPUSH PRN; Ondansetron 4 MG/2 ML SDV IVPUSH PRN; Ondansetron 4 MG/2 ML SDV ONE; Propofol 200 MG/20 ML SDV ONE; Ropivacaine 0.5% 5 MG/ML 30 ML SDV ONE; Scopolamine 1.5 MG Transdermal Patch TRDERM PRN; Sodium Chloride 0.9% 10 ML Syringe FLUSH PRN; ceFAZolin 1 GM Vial ONE; fentaNYL 100 MCG/2 ML SDV ONE
[2020-06-07] MEDS ORDERED: Triamcinolone Acetonide 40 MG/ML 1 ML MDV ONE (07:59)
[2020-06-07] MEDS ORDERED: Bupivacaine 0.25% 10 ML SDV ONE (08:00)
[2020-06-07] MEDS ORDERED: ceFAZolin 1 GM Vial ONE (08:00)
[2020-06-07] MEDS ORDERED: Vancomycin 1 GM SDV ONE (08:00)
--- NOTE | 2020-06-07 08:20 | PCM.SN.2 ---
- Free Text/Narrative Note: Anesthesia Note: Right selective femoral nerve block at the adductor canal for post-procedure pain control under US guidance requested by Dr. Smith. Time Out: 1044 Start: 1045 End: 1050 Chart reviewed. Consent signed. Questions answered. Appropriate monitors applied. Time out performed. Right mid-shaft femur identified with ultrasound, scanning medially of femur, the femoral artery in the adductor canal visualized, and the femoral nerve located laterally to the artery. The skin was prepped lateral to the ultrasound probe with chlorahexadine times two. The 21ga 4 insulated block needle was inserted under direct ultrasound guidance into the adductor canal. 25mL of 0.5% ropivacaine with 1:200,000 epinephrine was injected circumferentially around the nerve with intermittent negative aspiration noted. Patient tolerated the procedure well. Sterile technique noted along with sterile gloves, mask, and sterile probe cover. See picture on progress note and vital signs on nurses notes. Block completed in PACU. Cinthya Butt CRNA
[2020-06-07] MEDS ORDERED: Lactated Ringers 1,000 ML ONE (09:07)
[2020-06-07] MEDS ORDERED: fentaNYL 100 MCG/2 ML SDV IVPUSH PRN (09:08)
[2020-06-07] MEDS ORDERED: Ondansetron 4 MG/2 ML SDV IVPUSH PRN (09:08)
[2020-06-07] MEDS ORDERED: diphenhydrAMINE 50 MG/ML SDV IVPUSH PRN (09:08)
[2020-06-07] MEDS ORDERED: Metoclopramide 10 MG/2 ML SDV IV PRN (09:08)
[2020-06-07] MEDS ORDERED: ePHEDrine 50 MG/ML SDV IVPUSH PRN (09:08)
[2020-06-07] MEDS ORDERED: HYDROmorphone 0.5 MG/0.5 ML Syringe IVPUSH PRN ×2 (09:09→12:00)
[2020-06-07] MEDS ORDERED: Phenylephrine 1 MG in Sodium Chloride 0.9% 10 ML IV SCH (09:15)
[2020-06-07] MEDS ORDERED: ePHEDrine Sulfate/0.9% NaCl/Pf 25 MG/5 ML SYRINGE IV ONE (09:44)
--- NOTE | 2020-06-07 10:42 | PCM.POSTAN ---
POST ANESTHESIA ASSESSMENT - MENTAL STATUS Mental Status: Alert - VITAL SIGNS Vital Signs: Last Vital Signs Temp 97.1 06/07/20 1037 Pulse 80 06/07/20 1037 Resp 18 06/07/20 1037 BP 94/64 06/07/20 1037 Pulse Ox 100% 06/07/20 1037 - RESPIRATORY Respiratory Status: Respiratory Rate WNL, Airway Patent, O2 Saturation Stable - CARDIOVASCULAR CV Status: Pulse Rate WNL, Blood Pressure Stable - GASTROINTESTINAL GI Status: No Symptoms - POST OP HYDRATION Hydration Status: Adequate & Stable
--- NOTE | 2020-06-07 13:15 | CR ---
Right knee: AP and lateral views of the right knee were obtained. Comparison: No previous knee study. Knee prosthesis is seen. Soft tissue air is noted from the surgical procedure. Underlying bony structures are unremarkable. Impression: 1. Satisfactory postop radiographic appearance of recently placed right knee prosthesis. Diagnostic code #2 This report was dictated in MDT
[2020-06-07] MEDS: oxyCODONE 5 MG Tab PO PRN ×2 (13:30→21:15)
[2020-06-07] MEDS ORDERED: guaiFENesin 600 MG Tab.ER PO PRN (13:44)
[2020-06-07] MEDS ORDERED: FLUTICASONE PROPIONATE NASBOTH PRN (13:51)
[2020-06-07] MEDS ORDERED: Cyclobenzaprine 10 MG Tab PO PRN (15:00)
[2020-06-07] MEDS: ceFAZolin 2 GM in Premix Bag 1 BAG IV SCH ×2 (16:31→23:57)
[2020-06-07] MEDS: Ketorolac 15 MG/ML SDV IVPUSH PRN (17:32)
[2020-06-07] MEDS: Docusate Sodium 100 MG Cap PO SCH (20:57)
[2020-06-07] MEDS: Famotidine 20 MG Tab PO SCH (20:59)
[2020-06-07] MEDS ORDERED: Montelukast 10 MG Tab PO SCH (21:00)
[2020-06-07] MEDS ORDERED: Magnesium Hydroxide 400 MG/5 ML Susp 30 ML Cup PO PRN (21:00)
[2020-06-07] MEDS ORDERED: Sennosides 8.6 MG Tab PO PRN (21:00)
[2020-06-08] MEDS: Ketorolac 15 MG/ML SDV IVPUSH PRN ×2 (01:37→09:45)
[2020-06-08] MEDS ORDERED: Levothyroxine 100 MCG Tab PO SCH (06:00)
--- NOTE | 2020-06-08 07:40 | PCM48HPAN ---
Post Anesthesia Note - EVALUATION WITHIN 48HRS OF ANESTHETIC Vital Signs in Normal Range: Yes Patient Participated in Evaluation: Yes Respiratory Function Stable: Yes Airway Patent: Yes Cardiovascular Function Stable: Yes Hydration Status Stable: Yes Pain Control Satisfactory: Yes Nausea and Vomiting Control Satisfactory: Yes Mental Status Recovered: Yes Vital Signs: Last Vital Signs Temp 36.6 C 06/08/20 04:03 Pulse 84 06/08/20 04:03 Resp 16 06/08/20 04:03 BP 117/101 H 06/08/20 04:03 Pulse Ox 95 06/08/20 04:03
[2020-06-08] MEDS: oxyCODONE 5 MG Tab PO PRN (07:59)
--- NOTE | 2020-06-08 08:39 | PCM.SURGPN ---
- General Info Date of Service: 06/08/20 POD#: 1 Functional Status: Reports: Pain Controlled, Tolerating Diet, Ambulating, Urinating, Incentive Spirometry, Other (The pt states she slept well.) - Review of Systems General: Denies: Fever, Chills Pulmonary: Denies: Shortness of Breath Cardiovascular: Denies: Chest Pain Gastrointestinal: Denies: Abdominal Pain Musculoskeletal: Reports: Other (The pt states she has not pain at left knee today s/p injection.) - Patient Data Vitals - Most Recent: Last Vital Signs Temp 97.9 F 06/08/20 04:03 Pulse 84 06/08/20 04:03 Resp 16 06/08/20 04:03 BP 117/101 H 06/08/20 04:03 Pulse Ox 95 06/08/20 04:03 Weight - Most Recent: 167 lb I&O - Last 24 Hours: Intake & Output 06/07/20 06/08/20 06/08/20 22:59 06:59 14:59 Intake Total 410 50 Balance 410 50 Lab Results Last 24 Hrs: Laboratory Results - last 24 hr 06/08/20 06/08/20 Range/Units 05:55 05:55 WBC 12.46 H (3.98-10.04) K/mm3 RBC 3.84 L (3.98-5.22) M/mm3 Hgb 11.5 D (11.2-15.7) gm/dl Hct 36.4 (34.1-44.9) % MCV 94.8 (79.4-94.8) fl MCH 29.9 (25.6-32.2) pg MCHC 31.6 L (32.2-35.5) g/dl RDW Std Deviation 43.1 (36.4-46.3) fL Plt Count 216 (182-369) K/mm3 MPV 9.7 (9.4-12.3) fl Sodium 138 (136-145) mEq/L Potassium 4.4 (3.5-5.1) mEq/L Chloride 105 (98-107) mEq/L Carbon Dioxide 25 (21-32) mEq/L Anion Gap 12.4 (5-15) BUN 18 (7-18) mg/dL Creatinine 0.8 (0.55-1.02) mg/dL Est Cr Clr Drug Dosing 52.49 mL/min Estimated GFR (MDRD) > 60 (>60) mL/min BUN/Creatinine Ratio 22.5 H (14-18) Glucose 153 H (80-115) mg/dL Calcium 8.9 (8.5-10.1) mg/dL Total Bilirubin 0.3 (0.2-1.0) mg/dL AST 27 (15-37) U/L ALT 37 (14-59) U/L Alkaline Phosphatase 48 (46-116) U/L Total Protein 6.1 L (6.4-8.2) g/dl Albumin 3.0 L (3.4-5.0) g/dl Globulin 3.1 gm/dL Albumin/Globulin Ratio 1.0 (1-2) Med Orders - Current: Current Medications Aspirin (Ecotrin) 325 mg PO BID [facility] Bisacodyl (Dulcolax) 5 mg PO DAILY PRN PRN Reason: Constipation Cholecalciferol (Vitamin D3) 5,000 unit PO DAILY [facility] Cyclobenzaprine HCl (Flexeril) 5 mg PO TID PRN PRN Reason: Spasms Docusate Sodium (Colace) 100 mg PO BID [facility] Last Admin: 06/07/20 20:57 Dose: 100 mg Documented by: Famotidine (Pepcid) 20 mg PO Q12H [facility] Last Admin: 06/07/20 20:59 Dose: 20 mg Documented by: Fluticasone Propionate (Flonase) 0 gm NASBOTH DAILY PRN PRN Reason: ALLERGIES Guaifenesin (Mucinex) 600 mg PO BID PRN PRN Reason: Allergies Hydromorphone HCl (Dilaudid) 0.2 mg IVPUSH Q2H PRN PRN Reason: Pain (moderate 4-6) Ketorolac Tromethamine (Toradol) 15 mg IVPUSH Q6H PRN PRN Reason: Pain Last Admin: 06/08/20 01:37 Dose: 15 mg Documented by: Levothyroxine Sodium (Synthroid) 100 mcg PO ACBREAKFAST [facility] Last Admin: 06/08/20 05:15 Dose: 100 mcg Documented by: Magnesium Hydroxide (Milk Of Magnesia) 30 ml PO BID PRN PRN Reason: Constipation Montelukast Sodium (Singulair) 10 mg PO BEDTIME [facility] Last Admin: 06/07/20 21:00 Dose: 10 mg Documented by: Naloxone HCl (Narcan) 0.1 mg IVPUSH Q5M PRN PRN Reason: Oversedation Ondansetron HCl (Zofran) 4 mg IVPUSH Q6H PRN PRN Reason: Nausea/Vomiting Oxycodone HCl (Oxycodone) 5 - 10 mg PO Q4H PRN PRN Reason: Pain Last Admin: 06/08/20 07:59 Dose: 5 mg Documented by: Senna (Senna) 8.6 mg PO BID PRN PRN Reason: Constipation Discontinued Medications Bupivacaine HCl (Sensorcaine-Mpf 0.25%) Confirm Administered Dose 40 ml .ROUTE .STK-MED ONE Stop: 06/07/20 08:01 Last Admin: 06/07/20 10:06 Dose: 30 ml Documented by: Cefazolin Sodium (Ancef) Confirm Administered Dose 2 gm .ROUTE .STK-MED ONE Stop: 06/07/20 07:10 Last Admin: 06/07/20 10:01 Dose: 2 gm Documented by: Cefazolin Sodium (Ancef) Confirm Administered Dose 2 gm .ROUTE .STK-MED ONE Stop: 06/07/20 08:01 Morphine Sulfate 8 mg/Epinephrine HCl 0.3 mg/Cefuroxime Sodium 750 mg/Ketorolac Tromethamine 30 mg/Sodium Chloride 7.9 ml 0 mg .XX ASDIRECTED PRN PRN Reason: Pain Stop: 06/07/20 13:00 Last Admin: 06/07/20 10:06 Dose: 788.3 mg Documented by: Dexamethasone (Dexamethasone) Confirm Administered Dose 20 mg .ROUTE .STK-MED ONE Stop: 06/07/20 07:10 Diphenhydramine HCl (Benadryl) 25 mg IVPUSH Q6H PRN PRN Reason: pruritis Stop: 06/07/20 12:00 Ephedrine Sulfate (Ephedrine Sulfate) 5 mg IVPUSH ASDIRECTED PRN PRN Reason: Hypotension Stop: 06/07/20 12:00 Ephedrine Sulfate (Ephedrine 25 Mg/5 Ml Syringe) Confirm Administered Dose 25 mg IV .STK-MED ONE Stop: 06/07/20 09:45 Epinephrine HCl (Adrenalin) Confirm Administered Dose 1 mg .ROUTE .STK-MED ONE Stop: 06/07/20 06:57 Fentanyl (Sublimaze) Confirm Administered Dose 100 mcg .ROUTE .STK-MED ONE Stop: 06/07/20 07:10 Fentanyl (Sublimaze) 50 mcg IVPUSH Q5M PRN PRN Reason: Pain Stop: 06/07/20 12:00 Hydromorphone HCl (Dilaudid) 0.5 mg IVPUSH ONETIME PRN PRN Reason: Pain Stop: 06/07/20 12:00 Lactated Ringer's (Ringers, Lactated) 1,000 mls @ 125 mls/hr IV ASDIRECTED BOOGIE Stop: 06/07/20 23:00 Last Admin: 06/07/20 07:45 Dose: 125 mls/hr Documented by: Lidocaine HCl (Xylocaine-Mpf 1%) Confirm Administered Dose 4 mls @ as directed .ROUTE .STK-MED ONE Stop: 06/07/20 07:10 Lactated Ringer's (Ringers, Lactated) Confirm Administered Dose 1,000 mls @ as directed .ROUTE .STK-MED ONE Stop: 06/07/20 07:10 Cefazolin Sodium/Dextrose 2 gm (/ Premix) 50 mls @ 100 mls/hr IV Q8H BOOGIE Stop: 06/08/20 08:29 Last Admin: 06/07/20 23:57 Dose: 100 mls/hr Documented by: Lactated Ringer's (Ringers, Lactated) Confirm Administered Dose 1,000 mls @ as directed .ROUTE .STK-MED ONE Stop: 06/07/20 09:08 Phenylephrine HCl 1 mg/ Sodium (Chloride) 10.1 mls @ 1 mls/sec IV TITRATE BOOGIE; Protocol Stop: 06/07/20 12:00 Ketamine HCl (Ketalar) Confirm Administered Dose 500 mg .ROUTE .STK-MED ONE Stop: 06/07/20 07:11 Ketorolac Tromethamine (Toradol) Confirm Administered Dose 30 mg .ROUTE .STK-MED ONE Stop: 06/07/20 07:10 Lidocaine/Sodium Bicarbonate (Buffered Lidocaine 1% In Ns 8.4%) 0.25 ml IDERM ONETIME PRN PRN Reason: Prior to IV Start Stop: 06/07/20 23:00 Last Admin: 06/07/20 07:39 Dose: 0.25 ml Documented by: Metoclopramide HCl (Reglan) 10 mg IV ONETIME PRN PRN Reason: Nausea/Vomiting Stop: 06/07/20 12:00 Midazolam HCl (Versed 1 Mg/Ml) Confirm Administered Dose 2 mg .ROUTE .STK-MED ONE Stop: 06/07/20 07:10 Ondansetron HCl (Zofran) Confirm Administered Dose 4 mg .ROUTE .STK-MED ONE Stop: 06/07/20 07:10 Ondansetron HCl (Zofran) 4 mg IVPUSH ONETIME PRN PRN Reason: Nausea/Vomiting Stop: 06/07/20 12:00 Propofol (Diprivan 20 Ml) Confirm Administered Dose 400 mg .ROUTE .STK-MED ONE Stop: 06/07/20 07:10 Ropivacaine (Naropin 0.5%) Confirm Administered Dose 30 ml .ROUTE .STK-MED ONE Stop: 06/07/20 06:57 Scopolamine (Transderm-Scop) 1.5 mg TRDERM ONETIME PRN PRN Reason: PONV Stop: 06/07/20 18:00 Last Admin: 06/07/20 07:42 Dose: 1.5 mg Documented by: Sodium Chloride (Saline Flush) 10 ml FLUSH ASDIRECTED PRN PRN Reason: Keep Vein Open Stop: 06/07/20 23:00 Tranexamic Acid (Cyklokapron) Confirm Administered Dose 1,000 mg .ROUTE .STK-MED ONE Stop: 06/07/20 08:00 Last Admin: 06/07/20 10:13 Dose: 1,000 mg Documented by: Triamcinolone Acetonide (Kenalog-40) Confirm Administered Dose 80 mg .ROUTE .STK-MED ONE Stop: 06/07/20 08:00 Last Admin: 06/07/20 10:31 Dose: 80 mg Documented by: Vancomycin HCl (Vancomycin) Confirm Administered Dose 1 gm .ROUTE .STK-MED ONE Stop: 06/07/20 08:01 Last Admin: 06/07/20 10:10 Dose: 1 gm Documented by: - Exam Wound/Incisions: Dressing Dry and Intact, Other (REENA in place and sealed.) General: Alert, Cooperative, No Acute Distress Lungs: Normal Respiratory Effort Extremities: Other (NVS intact for BLE. Felipe's negative. ) Sepsis Event Note - Evaluation Sepsis Screening Result: No Definite Risk - Focused Exam Vital Signs: Vital Signs Temp Pulse Resp BP Pulse Ox 06/08/20 04:03 97.9 F 84 16 117/101 H 95 06/07/20 23:54 97.5 F 74 16 121/69 93 L Date Exam was Performed: 06/08/20 Time Exam was Performed: 08:32 - Problem List Review Problem List Initiated/Reviewed/Updated: Yes - My Orders Last 24 Hours: Active Orders 24 hr Category Date Time Status Communication Order [RC] ROUTINE Care 06/07/20 09:08 Active Notify Provider [RC] ASDIRECTED Care 06/07/20 09:08 Active Pulse Oximetry [RC] ASDIRECTED Care 06/07/20 09:08 Active Ready for Discharge [RC] PER UNIT ROUTINE Care 06/08/20 08:32 Ordered Vital Signs [] Q2HR Care 06/07/20 09:08 Active Regular Diet [DIET] Diet 06/07/20 Lunch Active Aspirin [Ecotrin] Med 06/08/20 09:00 Active 325 mg PO BID Cholecalciferol (Vitamin D3) [Vitamin D3] Med 06/08/20 09:00 Active 5,000 unit PO DAILY Cyclobenzaprine [Flexeril] Med 06/07/20 15:00 Active 5 mg PO TID PRN Docusate Sodium [Colace] Med 06/07/20 21:00 Active 100 mg PO BID Famotidine [Pepcid] Med 06/07/20 21:00 Active 20 mg PO Q12H Fluticasone Propionate [Flonase] Med 06/07/20 13:51 Active 0 gm NASBOTH DAILY PRN HYDROmorphone [Dilaudid] Med 06/07/20 12:00 Active 0.2 mg IVPUSH Q2H PRN Ketorolac [Toradol] Med 06/07/20 14:00 Active 15 mg IVPUSH Q6H PRN Levothyroxine [Synthroid] Med 06/08/20 06:00 Active 100 mcg PO ACBREAKFAST Magnesium Hydroxide [Milk of Magnesia] Med 06/07/20 21:00 Active 30 ml PO BID PRN Montelukast [Singulair] Med 06/07/20 21:00 Active 10 mg PO BEDTIME Sennosides [Senna] Med 06/07/20 21:00 Active 8.6 mg PO BID PRN guaiFENesin [Mucinex] Med 06/07/20 13:44 Active 600 mg PO BID PRN oxyCODONE Med 06/07/20 12:00 Active 5 - 10 mg PO Q4H PRN Medication Orders Aspirin (Ecotrin) 325 mg PO BID [facility] Bisacodyl (Dulcolax) 5 mg PO DAILY PRN PRN Reason: Constipation Cholecalciferol (Vitamin D3) 5,000 unit PO DAILY [facility] Cyclobenzaprine HCl (Flexeril) 5 mg PO TID PRN PRN Reason: Spasms Docusate Sodium (Colace) 100 mg PO BID [facility] Last Admin: 06/07/20 20:57 Dose: 100 mg Documented by: KATINA Famotidine (Pepcid) 20 mg PO Q12H [facility] Last Admin: 06/07/20 20:59 Dose: 20 mg Documented by: KATINA Fluticasone Propionate (Flonase) 0 gm NASBOTH DAILY PRN PRN Reason: ALLERGIES Guaifenesin (Mucinex) 600 mg PO BID PRN PRN Reason: Allergies Hydromorphone HCl (Dilaudid) 0.2 mg IVPUSH Q2H PRN PRN Reason: Pain (moderate 4-6) Ketorolac Tromethamine (Toradol) 15 mg IVPUSH Q6H PRN PRN Reason: Pain Last Admin: 06/08/20 01:37 Dose: 15 mg Documented by: Admin: 06/07/20 17:32 Dose: 15 mg Documented by: RICHI Levothyroxine Sodium (Synthroid) 100 mcg PO ACBREAKFAST [facility] Last Admin: 06/08/20 05:15 Dose: 100 mcg Documented by: KATINA Magnesium Hydroxide (Milk Of Magnesia) 30 ml PO BID PRN PRN Reason: Constipation Montelukast Sodium (Singulair) 10 mg PO BEDTIME [facility] Last Admin: 06/07/20 21:00 Dose: 10 mg Documented by: KATINA Naloxone HCl (Narcan) 0.1 mg IVPUSH Q5M PRN PRN Reason: Oversedation Ondansetron HCl (Zofran) 4 mg IVPUSH Q6H PRN PRN Reason: Nausea/Vomiting Oxycodone HCl (Oxycodone) 5 - 10 mg PO Q4H PRN PRN Reason: Pain Last Admin: 06/08/20 07:59 Dose: 5 mg Documented by: [id number] Admin: 06/07/20 21:15 Dose: 5 mg Documented by: [id number] Admin: 06/07/20 13:30 Dose: 5 mg Documented by: RICHI Moya (Senna) 8.6 mg PO BID PRN PRN Reason: Constipation - Assessment Assessment (Free Text/Narrative):: POD#1 - s/p right TKA with left knee cortisone injection - Plan Plan (Free Text/Narrative):: 1. Discharge to home today if cleared by Hospitalist service. 2. Hgb 11.5. 3. ASA 325mg PO BID, frequent mobility, TEDs. 4. Outpatient therapy. The pt's case was discussed with Dr. Smith.
[2020-06-08] MEDS ORDERED: Aspirin 325 MG Tab.EC PO SCH (09:00)
[2020-06-08] MEDS ORDERED: Cholecalciferol (Vitamin D3) 5,000 UNIT Tab PO SCH (09:00)
[2020-06-08] MEDS: ceFAZolin 2 GM in Premix Bag 1 BAG IV SCH (09:14)
[2020-06-08] MEDS: Famotidine 20 MG Tab PO SCH (09:44)
[2020-06-08] MEDS: Docusate Sodium 100 MG Cap PO SCH (09:45)
[2020-06-08 12:01] VITALS: BP 125/83; PULSE 73
--- NOTE | 2020-06-14 09:32 | PCM.OPNOTE ---
- General Post-Op/Procedure Note Date of Surgery/Procedure: 06/07/20 Operative Procedure(s): right total knee with left knee steroid injection Pre Op Diagnosis: bilateral knee osteoarthrosis Post-Op Diagnosis: Same Anesthesia Technique: Local, MAC, Spinal Primary Surgeon: Rene Smith Anesthesia Provider: Cinthya Butt Clamp Carrier Operator: Philly Schmidt Clamp Carrier Operator: Francia Sellers EBL in mLs: 5 Complications: None Condition: Good Free Text/Narrative:: 12/29 9mm 29x9
--- NOTE | 2020-06-14 09:59 | OR ---
DATE OF OPERATION: 06/07/2020 SURGEON: Rene Smith MD OPERATION PERFORMED: Right total knee arthroplasty with left knee corticosteroid injection. PREOPERATIVE DIAGNOSIS: Bilateral knee osteoarthrosis. POSTOPERATIVE DIAGNOSIS: Bilateral knee osteoarthrosis. ANESTHESIA: Local MAC with spinal. ANESTHESIA PROVIDER: Cinthya Butt CRNA. SALES REPRESENTATIVE ADDING MACHINES: Francia Sellers LPN. ESTIMATED BLOOD LOSS: 5 mL. COMPLICATIONS: None. CONDITION: Stable. IMPLANTS: 1. [place] size 3 cemented PS femur. 2. [place] size 3 cemented [place] tibial baseplate. 3. [place] size 3, 9 mm PS X3 polyethylene. 4. [place] size 29 x 9 mm cemented asymmetric patella. DESCRIPTION OF PROCEDURE: The patient was identified in the preop holding area. Proper site was marked and identified by the surgeon. The patient was taken back to the operating theater. After adequate anesthesia, the patient's right lower extremity had a nonsterile tourniquet applied and it was sterilely prepped and draped in the usual sterile fashion. OR time-out was performed. The patient received 2 g IV Ancef. At this time, the right lower extremity was exsanguinated. Tourniquet was insufflated to 300 mmHg. Standard medial parapatellar incision was made. Medial parapatellar arthrotomy was created. Deep fibers of the MCL were raised and anterior fat pad was resected. At this time, attention was turned to the patella. Patella measured 21, it was resected to a 13 for a 29 x 9 mm patella. Drill holes were then drilled and found to be in adequate position. The drill was then drilled in the distal femur and the intramedullary distal femoral cutting guide was then placed. 8 mm was resected off the distal femur and was found to be an adequate resection. Sizing guide was placed. It was found to be a size 3 cemented PS femur that was shown on the implant record at the beginning of this dictation. The drill holes were drilled for the epicondylar axis using [place] line and epicondyles as reference. At this time, the 4-in-1 cutting block was placed. An anterior posterior and anterior and posterior chamfer cuts were then completed. Attention was turned to the tibia. The posterior medial lateral retractors were placed. Box cute was completed. The extramedullary tibial guide was placed. It was placed in the old footprint of the ACL. It was aligned with the center of the ankle and 0 degrees of slope, 9 mm was then resected off the unaffected side. There was found to be an acceptable reduction. At this time, posterior osteophytes were removed along with medial and lateral meniscus. A trial implant was placed with a correct sized tibia that was mentioned at the beginning of the dictation. A [place] size, 3, 9 mm PS X3 polyethylene insert was then placed. The patient's knee was brought through range of motion. The patella was tracking centrally and was stable to varus and valgus stress. Alignment was found to be roughly at 0 degrees. The tibia was stamped and drilled in proper rotation. The universal tibial base plate was impacted in place. Next, the [place] size 3 cemented PS femur impacted into place and the [place] size 3, 9 mm PS X3 polyethylene insert was placed. The patient's knee was brought into full extension. The patella was then cemented in place at this time. Excess cement was removed One liter dilute Betadine solution was irrigated through the knee along with 3 L of pulse lavage irrigation with Ancef. Periarticular injection was then completed. The patient's knee was brought through a range of motion. Once the cement had time to set up and it was found to be stable to varus valgus stress, the patella was tracking centrally with full range of motion. At this time, a #2 barbed suture was used for closure of the medial parapatellar arthrotomy. Topical tranexamic acid was placed. 2-0 Vicryl was used subcutaneously, Prineo was used for the skin. The patient tolerated the procedure well and was sent to the PACU in stable condition. Under sterile technique, 2 mL of 40 mg Kenalog and 4 mL of 0.25% Marcaine were injected into the left knee. The patient tolerated all procedures well. ERNESTINA /[id number] [place]
== END 2020-06-08 10:30 | disposition home or self-care (01) ==
LOC: JD.MS 07:26 → JD.SDS 07:26 → JD.OB 08:44 → JD.SDS 06-08 10:30
PROVIDERS: ATTEND Orthopaedic Surgery
DX: M17.0 Bilateral primary osteoarthritis of knee (principal); I10 Essential (primary) hypertension; E03.9 Hypothyroidism, unspecified; M81.0 Age-related osteoporosis without current pathological fracture; F41.9 Anxiety disorder, unspecified; E66.9 Obesity, unspecified; Z91.041 Radiographic dye allergy status; Z79.899 Other long term (current) drug therapy; Z88.5 Allergy status to narcotic agent; Z88.8 Allergy status to other drugs, medicaments and biological substances; Z79.890 Hormone replacement therapy; Z68.30 Body mass index [BMI] 30.0-30.9, adult
CPT/HCPCS: 20610; 27447; 36415; 73560; 80053; 85027; 87641; 97110; 97116; 97161; 97165; 97535; A9270; C1713; C1776; J0171; J0690; J0697; J1100; J1885; J2001; J2250; J2270; J2405; J2704; J2795; J3301; J3370; J3490; J7120; 01402; 64450; J3010; U0002

== ENCOUNTER 2020-11-22 07:57 | Day surgery (SDC) | payer MEDICARE, BC ==
[~2020-11-22 07:57] MED LIST changes: -Bisacodyl 5 MG Tab PO PRN; -Dexamethasone 4 MG/ML 5 ML MDV ONE; -Ketamine 500 mg/10 ML MDV ONE; -Ketorolac 30 MG/ML SDV ONE; -Lactated Ringers 1,000 ML ONE; +Morphine 8 MG, EPINEPHrine 0.3 MG, Cefuroxime 750 MG, Ketorolac 30 MG, Sodium Chloride ... SCH; -Morphine Sulfate 8 MG, EPINEPHrine 0.3 MG, Cefuroxime 750 MG, Ketorolac 30 MG, Sodium C... PRN; -Naloxone 0.4 MG/ML SDV IVPUSH PRN; -Ondansetron 4 MG/2 ML SDV IVPUSH PRN; -Ondansetron 4 MG/2 ML SDV ONE; -Scopolamine 1.5 MG Transdermal Patch TRDERM PRN
[2020-11-22] MEDS ORDERED: Acetaminophen 325 MG Tab PO SCH (08:05)
[2020-11-22] MEDS ORDERED: Pregabalin 25 MG Cap PO SCH (08:06)
[2020-11-22] MEDS ORDERED: oxyCODONE ER 10 MG TAB.ER PO SCH (08:07)
[2020-11-22] MEDS ORDERED: Vancomycin 1 GM SDV ONE ×2 (08:37→08:42)
[2020-11-22] MEDS ORDERED: Bupivacaine 0.25% 10 ML SDV ONE (08:37)
[2020-11-22] MEDS ORDERED: Scopolamine 1.5 MG Transdermal Patch TOP ONE (08:54)
--- NOTE | 2020-11-22 08:57 | PCM.PREANE ---
Preanesthetic Assessment - Procedure Proposed Procedure: Left Total Knee Arthroplasty - Anesthesia/Transfusion/Family Hx Anesthesia History: Prior Anesthesia Reaction Type of Anesthesia Reaction: Excessive Nausea/Vomiting Transfusion History: No Prior Transfusion(s) Intubation History: Unknown - Review of Systems General: No Symptoms Pulmonary: No Symptoms Cardiovascular: No Symptoms Gastrointestinal: Other (GERD) Other: Reports: Sinus Problem (Sinusitis, improved since her sinus surgery. Environmental Allergies, taking singular daily. ), Anxiety - Physical Assessment NPO Status Date: 11/21/20 NPO Status Time: 22:00 Vital Signs: Last Vital Signs Temp 36.1 C 11/22/20 08:00 Pulse 79 11/22/20 08:00 Resp 18 11/22/20 08:00 BP 139/71 11/22/20 08:00 Pulse Ox 98 11/22/20 08:00 Height: 1.57 m Weight: 79.832 kg ASA Class: 2 Mental Status: Alert & Oriented x3 Airway Class: Mallampati = 3 Dentition: Reports: Normal Dentition Thyro-Mental Finger Breadths: 3 Mouth Opening Finger Breadths: 2 (Jaw Fusion. Limited opening.) ROM/Head Extension: Full Lungs: Clear to Auscultation, Normal Respiratory Effort Cardiovascular: Regular Rate, Regular Rhythm - Lab Values: Laboratory Last Values SARS-CoV-2 (PCR) Not detected (NOT DETECT) 11/18/20 10:00 MRSA (PCR) Negative 11/03/20 15:00 - Allergies Allergies/Adverse Reactions: Allergies Allergy/AdvReac Type Severity Reaction Status Date / Time adhesive Allergy Rash Verified 11/19/20 15:25 cat dander Allergy Airway Verified 11/19/20 15:25 Tightness iodine Allergy Rash Verified 11/19/20 15:25 iodoform Allergy Rash Verified 11/19/20 15:25 potassium iodide Allergy Rash Verified 11/19/20 15:25 povidone-iodine Allergy Rash Verified 11/19/20 15:25 codeine AdvReac Headache Verified 11/19/20 15:25 meperidine [From Demerol] AdvReac Nausea and Verified 11/19/20 15:25 Vomiting morphine AdvReac Depression Verified 11/19/20 15:25 IV contrast dye Allergy Rash Uncoded 11/19/20 15:25 - Anesthesia Plan Pre-Op Medication Ordered: Anxiolytic - Acknowledgements Anesthesia Type Planned: Spinal (Post operative Adductor Canal Block for pain control. ) PreAnesthesia Questionnaire HEENT History: Reports: Impaired Vision Other HEENT History: wears eyeglasses Cardiovascular History: Reports: Hypertension Respiratory History: Reports: None Gastrointestinal History: Reports: Other (See Below) Other Gastrointestinal History: part of liver removed. Genitourinary History: Reports: None [employer]ING [employer] History: Reports: Musculoskeletal History: Reports: Arthritis, Osteoporosis Neurological History: Reports: None Psychiatric History: Reports: Anxiety Endocrine/Metabolic History: Reports: Hypothyroidism Other Endocrine/Metabolic History: Graves Dx. Hematologic History: Reports: None Immunologic History: Reports: None Oncologic (Cancer) History: Reports: Liver Dermatologic History: Reports: None - Infectious Disease History Infectious Disease History: Reports: Chicken Pox, Measles, Mumps, Shingles - Past Surgical History Other HEENT Surgeries/Procedures: TMJ sx. GI Surgical History: Reports: Cholecystectomy - SUBSTANCE USE Tobacco Use Status *Q: Never Tobacco User Recreational Drug Use History: No - HOME MEDS Home Medications: Home Meds Cholecalciferol (Vitamin D3) [Vitamin D3] 5,000 unit PO DAILY 06/05/17 [History] Levothyroxine Sodium [Levo-T] 100 mcg PO DAILY 06/05/17 [History] guaiFENesin [Guaifenesin ER] 600 mg PO BID PRN 06/05/17 [History] hydroCHLOROthiazide [Hydrochlorothiazide] 12.5 mg PO DAILY 06/05/17 [History] Denosumab [Prolia] 1 injection INJECT ASDIRECTED 06/04/20 [History] Fish Oil/DHA/EPA [Fish Oil 1,200 MG] 1,200 unit PO BID 06/04/20 [History] Montelukast [Singulair] 10 mg PO BEDTIME 06/04/20 [History] Multivitamin [Multivitamins] 1 tab PO DAILY 06/04/20 [History] Fluticasone Propionate [Flonase] 2 sprays NASBOTH DAILY PRN 06/07/20 [History] Milk Thistle/Nac/Dandel/Turmer [Liver Complex Tablet] 1 tab PO Q48H 11/19/20 [History] Omeprazole Magnesium [Prilosec Otc] 20 mg PO DAILY 11/19/20 [History] Sodium Chloride [Saline Nasal [place]] 1 dose NASBOTH DAILY 11/19/20 [History] Whey Protein Isolate [Unjury] 1 dose PO DAILY 11/19/20 [History] Aspirin [Aspirin EC] 325 mg PO BID #84 tab 11/22/20 [Rx] Cyclobenzaprine [Flexeril] 5 mg PO BID PRN #20 tab 11/22/20 [Rx] oxyCODONE 5 - 10 mg PO Q4H PRN #40 tab 11/22/20 [Rx] - CURRENT (IN HOUSE) MEDS Current Meds: Current Medications Acetaminophen (Tylenol) 975 mg PO NOW [facility] Stop: 11/22/20 13:00 Last Admin: 11/22/20 08:16 Dose: 975 mg Documented by: Morphine Sulfate 8 mg/Epinephrine HCl 0.3 mg/Cefuroxime Sodium 750 mg/Ketorolac Tromethamine 30 mg/Sodium Chloride 7.9 ml 0 mg .XX ONETIME [facility] Stop: 11/22/20 12:00 Lactated Ringer's (Ringers, Lactated) 1,000 mls @ 125 mls/hr IV ASDIRECTED [facility] Stop: 11/22/20 23:00 Last Admin: 11/22/20 08:14 Dose: 125 mls/hr Documented by: Lidocaine/Sodium Bicarbonate (Buffered Lidocaine 1% In Ns 8.4%) 0.25 ml IDERM ONETIME PRN PRN Reason: Prior to IV Start Stop: 11/22/20 18:00 Last Admin: 11/22/20 08:14 Dose: 0.25 ml Documented by: Oxycodone HCl (Oxycontin) 10 mg PO ONETIME [facility] Stop: 11/22/20 13:00 Last Admin: 11/22/20 08:17 Dose: 10 mg Documented by: Pregabalin (Lyrica) 50 mg PO ONETIME [facility] Stop: 11/22/20 13:00 Last Admin: 11/22/20 08:16 Dose: 50 mg Documented by: Sodium Chloride (Saline Flush) 10 ml FLUSH ASDIRECTED PRN PRN Reason: Keep Vein Open Stop: 11/22/20 18:00 Discontinued Medications Bupivacaine HCl (Sensorcaine-Mpf 0.25%) Confirm Administered Dose 30 ml .ROUTE .STK-MED ONE Stop: 11/22/20 08:38 Cefazolin Sodium (Ancef) Confirm Administered Dose 2 gm .ROUTE .STK-MED ONE Stop: 11/22/20 07:46 Epinephrine HCl (Adrenalin) Confirm Administered Dose 1 mg .ROUTE .STK-MED ONE Stop: 11/22/20 07:54 Fentanyl (Sublimaze) Confirm Administered Dose 100 mcg .ROUTE .STK-MED ONE Stop: 11/22/20 07:45 Lidocaine HCl (Xylocaine-Mpf 1%) Confirm Administered Dose 4 mls @ as directed .ROUTE .STK-MED ONE Stop: 11/22/20 07:45 Midazolam HCl (Versed 1 Mg/Ml) Confirm Administered Dose 2 mg .ROUTE .STK-MED ONE Stop: 11/22/20 07:45 Propofol (Diprivan 20 Ml) Confirm Administered Dose 400 mg .ROUTE .STK-MED ONE Stop: 11/22/20 07:46 Ropivacaine (Naropin 0.5%) Confirm Administered Dose 30 ml .ROUTE .STK-MED ONE Stop: 11/22/20 07:54 Tranexamic Acid (Cyklokapron) Confirm Administered Dose 1,000 mg .ROUTE .STK-MED ONE Stop: 11/22/20 08:38 Vancomycin HCl (Vancomycin) Confirm Administered Dose 1 gm .ROUTE .STK-MED ONE Stop: 11/22/20 08:38 Vancomycin HCl (Vancomycin) Confirm Administered Dose 1 gm .ROUTE .STK-MED ONE Stop: 11/22/20 08:43
[2020-11-22] MEDS ORDERED: Lactated Ringers 1,000 ML ONE (09:53)
--- NOTE | 2020-11-22 11:47 | PCM.POSTAN ---
POST ANESTHESIA ASSESSMENT - MENTAL STATUS Mental Status: Alert, Oriented - VITAL SIGNS Vital Signs: Last Vital Signs Temp 36.1 C 11/22/20 08:00 Pulse 79 11/22/20 08:00 Resp 18 11/22/20 08:00 BP 139/71 11/22/20 08:00 Pulse Ox 98 11/22/20 08:00 - RESPIRATORY Respiratory Status: Respiratory Rate WNL, Airway Patent, O2 Saturation Stable - CARDIOVASCULAR CV Status: Pulse Rate WNL, Blood Pressure Stable - GASTROINTESTINAL GI Status: No Symptoms - PAIN Pain Score: 0 - POST OP HYDRATION Hydration Status: Adequate & Stable - OBSERVATIONS Free Text/Narrative:: no anesthesia complications noted
--- NOTE | 2020-11-22 12:19 | CR ---
Left knee: AP and lateral views of the left knee were obtained. Comparison: Prior left knee CT study of 11/16/20. Knee prosthesis is noted within the left knee. Components are aligned. Underlying bony structures are intact. Small joint effusion is seen. Impression: 1. Satisfactory postop radiographic appearance of recently placed left knee prosthesis. Diagnostic code #2
--- NOTE | 2020-11-22 12:23 | PCM.SN.2 ---
- Free Text/Narrative Note: Left selective femoral nerve block at the adductor canal for post-procedure pain control under US guidance requested by Dr. Smith. Time Out: 1201 Start: 1201 End: 1210 Chart reviewed. Consent signed. Questions answered. Appropriate monitors applied. Time out performed. Left mid-shaft femur identified with ultrasound, scanning medially of femur, the femoral artery in the adductor canal visualized, and the femoral nerve located laterally to the artery. The skin was prepped lateral to the ultrasound probe with chlorahexadine times two. The 21ga 4 insulated block needle was inserted under direct ultrasound guidance into the adductor canal. 24 mL of 0.5% ropivacaine with 1:200,000 epinephrine was injected circumferentially around the nerve with intermittent negative aspiration noted. Patient tolerated the procedure well. Sterile technique noted along with sterile gloves, mask, and sterile probe cover. See picture on progress note and vital signs on nurses notes. Block completed in PACU. Romulo Singh CRNA
--- NOTE | 2020-11-22 13:03 | PCM48HPAN ---
Post Anesthesia Note - EVALUATION WITHIN 48HRS OF ANESTHETIC Vital Signs in Normal Range: Yes Patient Participated in Evaluation: Yes Respiratory Function Stable: Yes Airway Patent: Yes Cardiovascular Function Stable: Yes Hydration Status Stable: Yes Pain Control Satisfactory: Yes Nausea and Vomiting Control Satisfactory: Yes Mental Status Recovered: Yes Vital Signs: Last Vital Signs Temp 36.7 C 11/22/20 12:45 Pulse 81 11/22/20 12:45 Resp 18 11/22/20 12:45 BP 112/54 L 11/22/20 12:45 Pulse Ox 94 L 11/22/20 12:45 - COMMENTS/OBSERVATIONS Free Text/Narrative:: NO ANESTHESIA COMPLICATIONS NOTED
[2020-11-22] MEDS ORDERED: oxyCODONE 5 MG Tab PO PRN (14:30)
[2020-11-22] MEDS ORDERED: Ketorolac 15 MG/ML SDV IVPUSH PRN (14:39)
[2020-11-22 18:28] VITALS: BP 123/50; PULSE 77
--- NOTE | 2020-12-02 11:54 | PCM.OPNOTE ---
- General Post-Op/Procedure Note Date of Surgery/Procedure: 11/22/20 Operative Procedure(s): left total knee arthroplasty Pre Op Diagnosis: left knee osteoarthrosis Post-Op Diagnosis: Same Anesthesia Technique: Local, MAC, Spinal Primary Surgeon: Rene Smith Anesthesia Provider: Romulo Singh Training Lead: Philly Schmidt Training Lead: Francia Sellers in mLs: 5 Complications: None Condition: Good Free Text/Narrative:: 3 femur 3 tibia 9mm 29x9 cemented
--- NOTE | 2020-12-06 08:01 | OR ---
DATE OF OPERATION: 11/22/2020 SURGEON: Rene Smith MD OPERATION PERFORMED: Left total knee arthroplasty. PREOPERATIVE DIAGNOSIS: Left knee osteoarthrosis. POSTOPERATIVE DIAGNOSIS: Left knee osteoarthrosis. ANESTHESIA: Local MAC with spinal. ANESTHESIA PROVIDER: Romulo Singh CRNA ASSISTANTS: Philly Schmidt PA-C and Francia Sellers LPN ESTIMATED BLOOD LOSS: 5 mL. COMPLICATIONS: None. CONDITION: Stable. IMPLANTS: 1. [place] size 3 cemented PS femur. 2. Chris size 3 cemented [place] tibial baseplate. 3. [place] size 3, 9 mm PS X3 polyethylene. 4. [place] size 29 x 9 mm cemented asymmetric patella. DESCRIPTION OF PROCEDURE: The patient was identified in the preoperative holding area. Proper site was marked and identified by the surgeon. The patient was taken back to the operating theater where after adequate anesthesia, the patient's left lower extremity had a nonsterile tourniquet applied and was then sterilely prepped and draped in the usual sterile fashion. OR time-out was performed. The patient received 2 grams of IV Ancef. At this time, the leg mora was then attached to the table. Left lower extremity had the boot attached to it for the leg mora and then was exsanguinated and tourniquet was insufflated to 250 mmHg. Standard anterior incision was made and medial parapatellar arthrotomy was created. Deep fibers of the MCL were raised and anterior fat pad was resected as well as the ACL. Attention was turned to the patella. Patella measured 22, it was resected to a 13 for a 29 x 9 mm patella. Drill holes were then drilled and found to be adequate. At this time, the extraarticular array was placed on the femur with small incisions and two 4.0 pins were placed and the array for the [place] Christian robot was placed on the femur. This was done in similar fashion 4 fingerbreadths below the tibial tubercle on the tibial side. Once this was completed, 40 points were obtained on both the femur and the tibia and the plan was brought to place for resection of the femur. First, the distal femoral cut as well as the posterior and posterior chamfer cut was completed and found to be adequate. Next, the anterior and anterior chamfer cut was completed and then the box cut was completed for the size 3 femur, was found to be adequate resection with the Christian robot on the femur. Attention was turned to the tibia. Resection was done on the tibia. Medial and lateral meniscus were then removed, as well as any posterior osteophytes. Edwards was then used to check gap balancing and was found to have 1 mm or less with good gap balancing on both the medial and lateral joint line. At this time, the tibia was stamped and drilled in proper rotation after all trial implants were removed. Cement was mixed on the back table. The size 3 tibial baseplate was cemented onto the tibia after it was irrigated with pulse lavage irrigation with Ancef and fully dried. Next, the size 3 femur was cemented into place. The 9 mm PS X3 polyethylene was impacted into place. The patient's knee was brought into extension. Excess cement was removed and a 29 x 9 mm patella was cemented into place. One liter of Irrisept irrigation was irrigated through the knee along with 1 liter pulse lavage irrigation with Ancef. Periarticular injection was completed. Topical tranexamic acid and vancomycin powder were applied. A #2 barbed suture was used for closure of the medial parapatellar arthrotomy, 2-0 Vicryl was used subcutaneously along with a Stratafix suture. Prineo was used for skin closure. The patient had a sterile soft dressing applied and was sent to PACU in stable condition and tolerated the procedure well. ERNESTINA /[id number]
== END 2020-11-22 18:24 | disposition home or self-care (01) ==
LOC: JD.SDS 07:57 → JD.MS 13:29 → JD.SDS 18:24
PROVIDERS: ATTEND Orthopaedic Surgery
DX: M17.12 Unilateral primary osteoarthritis, left knee (principal); I10 Essential (primary) hypertension; E03.9 Hypothyroidism, unspecified; E66.9 Obesity, unspecified; G89.18 Other acute postprocedural pain; Z01.812 Encounter for preprocedural laboratory examination; Z20.822 Contact with and (suspected) exposure to COVID-19; Z79.899 Other long term (current) drug therapy; Z88.5 Allergy status to narcotic agent; Z91.041 Radiographic dye allergy status; Z91.048 Other nonmedicinal substance allergy status; Z88.8 Allergy status to other drugs, medicaments and biological substances; Z90.49 Acquired absence of other specified parts of digestive tract; Z98.890 Other specified postprocedural states; Z68.32 Body mass index [BMI] 32.0-32.9, adult; Z79.82 Long term (current) use of aspirin
CPT/HCPCS: 27447; 73560; 87641; 97110; 97116; 97161; A9270; C1713; C1776; J0171; J0690; J0697; J1885; J2001; J2250; J2270; J2370; J2704; J2795; J3010; J3370; J3490; J7120; U0002; 01402; 64450

== ENCOUNTER 2022-11-24 13:51 | Inpatient (IN) | payer MEDICARE, BC ==
[2022-11-24 15:08] LABS: ESTIMATED GFR 79 mL/min (>60)
[2022-11-24 16:01] LABS: CORONAVIRUS COVID-19 NAA NEGATIVE (NEGATIVE)
[2022-11-24] MEDS ORDERED: traMADol 50 MG Tab PO ONE (17:12)
[2022-11-24] MEDS ORDERED: Morphine 2 MG/ML SYRINGE IVPUSH PRN (17:32)
[2022-11-24] MEDS ORDERED: Sodium Chloride 0.9% 10 ML Syringe FLUSH PRN (17:32)
[2022-11-24] MEDS ORDERED: Temazepam 7.5 MG Cap PO PRN (17:32)
[2022-11-24] MEDS ORDERED: Ondansetron 4 MG Tab.DIS PO PRN (17:32)
[2022-11-24] MEDS ORDERED: Sodium Chloride 0.9% 1,000 ML IV SCH ×2 (17:45→17:46)
[2022-11-25] MEDS: oxyCODONE 5 MG Tab PO PRN ×2 (00:51→05:58)
[2022-11-25] MEDS ORDERED: Sodium Chloride 0.9% 1,000 ML IV SCH ×4 (01:00→01:15)
[2022-11-25] MEDS: Sodium Chloride 0.9% 1,000 ML IV SCH ×2 (01:48→17:43)
[2022-11-26] MEDS: Sodium Chloride 0.9% 1,000 ML IV SCH ×2 (02:41→19:45)
[2022-11-27] MEDS: Sodium Chloride 0.9% 1,000 ML IV SCH (04:35)
[2022-11-27 13:10] VITALS: BP 140/61; PULSE 99
== END 2022-11-27 14:25 | disposition hospice, home (50) | DRG 951 ==
LOC: JD.ED 13:51 → JD.MS 17:33
PROVIDERS: ADMIT Internal Medicine; ATTEND Internal Medicine
DX: R53.1 Weakness (principal); R41.0 Disorientation, unspecified; Z51.5 Encounter for palliative care; C22.1 Intrahepatic bile duct carcinoma; C78.02 Secondary malignant neoplasm of left lung; C78.00 Secondary malignant neoplasm of unspecified lung; C78.01 Secondary malignant neoplasm of right lung; I10 Essential (primary) hypertension; Z66 Do not resuscitate; S90.822A Blister (nonthermal), left foot, initial encounter; S90.821A Blister (nonthermal), right foot, initial encounter; R62.7 Adult failure to thrive; F41.9 Anxiety disorder, unspecified; E03.9 Hypothyroidism, unspecified; R29.6 Repeated falls; Z20.822 Contact with and (suspected) exposure to COVID-19; S90.829A Blister (nonthermal), unspecified foot, initial encounter; Z68.31 Body mass index [BMI] 31.0-31.9, adult; Z79.899 Other long term (current) drug therapy; Z79.890 Hormone replacement therapy; Z88.8 Allergy status to other drugs, medicaments and biological substances; Z88.5 Allergy status to narcotic agent; Z88.6 Allergy status to analgesic agent; Z91.041 Radiographic dye allergy status; Z97.3 Presence of spectacles and contact lenses; Z90.49 Acquired absence of other specified parts of digestive tract; X58.XXXA Exposure to other specified factors, initial encounter; Y92.89 Other specified places as the place of occurrence of the external cause
CPT/HCPCS: 0241U; 36415; 80053; 81001; 85025; 86140; 97162; 97530; 99285; A9270-GY